=== PATIENT | male | born 1965 | race Caucasian/White ===

== ENCOUNTER 2023-03-14 10:19 | Outpatient (REF) | payer BC, SELFPAY ==
--- NOTE | ~2023-03-14 | XR_ITS ---
EXAMINATION: XR PELVIS CLINICAL INFORMATION: Pain left hip osteoarthritis with. Falls. COMPARISON: None available. TECHNIQUE: AP view of the pelvis. FINDINGS: Right hip: Unremarkable. Left hip: Mild joint space narrowing and possible small subchondral cysts indicative of at least mild osteoarthritis. Remaining bone and joints in the pelvis are normal. Incidental note made of spondylosis of the partially visualized lumbar sacral spine. XR/XR pelvis 1-2V IMPRESSION: RIGHT HIP: Normal. LEFT HIP: Mild osteoarthritis.
== END 2023-03-14 10:20 | disposition home or self-care (01) ==
LOC: HO.XRAY 10:19
PROVIDERS: Visit Provider Physical Medicine & Rehabilitation
DX: M25.552 Pain in left hip (principal); M15.0 Primary generalized (osteo)arthritis; R29.6 Repeated falls
CPT/HCPCS: 72170

== ENCOUNTER 2023-08-08 12:27 | Outpatient (AMB) | payer BC, SELFPAY ==
--- NOTE | 2023-08-08 12:30 | MHC.OFFVIS ---
Intake Intake Visit Reasons: New Pt - Left Hip Pain Intake Note: Aman is a 58 year old male who presents today as a new patient for evaluation of his left hip. He was referred to us by [facility] for a subchondral insufficiency fracture. States no injury he can recall just ongoing pain for the last 3 years and has worsen with time. Reports severe groin pain limited ROM and he is limping. States he had an injection Jun at [facility] whic did not help Allergies No Known Allergies Allergy (Verified 05/14/21 13:49) HPI New Pt - Left Hip Pain HPI Details Aman is a 58 year old man who presents with complaints of left hip OA pain. He complains of pain with WB activities. He says climbing in/out of his truck is especially painful, as well as when his hip is held in certain positions. His pain has been present for ~3 years now. He has been seen by [facility] and received a hip arthrogram injection on 06/17/23, with great relief. He says he was able to walk comfortably following this injection. However he slipped on ice and fell a few weeks later, causing an increase in his pain. He was referred here for hip OA, labral tear, and a subchondral insufficiency fracture of the left hip. He is very frustrated and exasperated. He has been in pain for years and everyday he feels like it is getting worse. [facility] Social History Patient Tobacco Use Status: Never used Tobacco Review of Systems Const All systems reviewed & are unremarkable except as noted in HPI and below Physical Exam Const General: no acute distress, alert and awake Orientation/consciousness: patient oriented x3 HEENT Head: Yes normocephalic and Yes atraumatic Eyes EOM: EOMs intact bilaterally Resp Effort & Inspection: normal respiratory effort and able to speak in complete sentences Cardio Jugular venous distension: no JVD Skin General skin exam: turgor normal Rashes: no rashes Neuro General: patient oriented x3 Extrem Other: + gait antalgia +Stinchfield +impinfgment Psych Appearance: grossly normal Affect: normal affect Attitude: cooperative Results Reviewed Results Reviewed: I personally reviewed relevant radiographs. Left hip moderate OA I personally reviewed the MR images. There is a subchondral insufficiency fracture of the left femoral head with associated head and neck edema. There is severe OA of the left hip. Assessment & Plan Assessment & Plan (1) Insufficiency fracture of left femur: Code(s): M84.452A - Pathological fracture, left femur, initial encounter for fracture Plan: This is as 58 yo with osteoarthritis of the left hip. 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 His hip injection was helpful but he currently is unable to function. He is taking NSAIDs and not sleeping. The pain localizes to his left groin. I recommend he now work and I recommend a hip replacement. I discussed this with him and I described the process and I discussed the risks benefits and alternatives including but not limited to the risk of pain, infection, stiffness, need for further surgery as well as potential medical complications such as blood clots, pulmonary embolism and cardiac complications. He expressed understanding and we will have our NN reach out to him to begin the clearance process. He does not have a PCP and will need some basic testing. I strongly advise him to not work. 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 (2) Osteoarthritis of left hip: Code(s): M16.12 - Unilateral primary osteoarthritis, left hip Plan Prepared for Manuelito Bee MD by Adolfo Young, medical doctor md, on 08/08/23 at 12:38 PM, EST. Coding Level of Care Code New Pt Level 4 (95586) Diagnoses Insufficiency fracture of left femur M84.452A Osteoarthritis of left hip M16.12
== END 2023-08-08 13:10 | disposition home or self-care (01) ==
PROVIDERS: Visit Provider Orthopaedic Surgery
DX: M16.12 Unilateral primary osteoarthritis, left hip (principal); M84.452A Pathological fracture, left femur, initial encounter for fracture
CPT/HCPCS: 99204

== ENCOUNTER → 2023-08-08 12:27 | Outpatient (BNVA) | payer BC, SELFPAY | PROVIDERS: Visit Provider Orthopaedic Surgery ==

== ENCOUNTER 2023-09-15 08:24 | Outpatient (AMB) | payer BC, SELFPAY ==
--- NOTE | 2023-09-15 08:33 | A.OFFPC_ITS ---
Vital Signs 09/15/23 08:38 Height 5 ft 9 in Weight 181 lb BMI 26.7 BP 116/74 Blood Pressure Location Lt brachial Position Sitting Respiration 13 Pulse 83 Pulse Source Pulse Oximeter Pulse Oximetry (%) 98 Oxygen Delivery Method Room Air Intake Visit Reasons: est care Intake Note: Patient is here to establish care with a PCP. Patient is due to have L hip surgery on October 08, 2023 with Manuelito Bee MD and was recommended to our office to establish care. Spectacle Truer Required: No Accompanied by: Self / Same As Patient Allergies No Known Allergies Allergy (Verified 09/15/23 08:54) Medication List - Last Reconciled 09/15/23 by Isidra Holden, [employer]- valacyclovir 1,000 mg PO Q8H 1 week Tobacco use date assessed: 09/15/23 Dental Screening Dental Screen Date: 09/15/23 Did you have a dental visit in the last 12 months?: No Did you have a dental problem in the last 6 months where you did not have access to dental care?: No Was dental information given to patient?: Patient has dentist HPI HPI Comments History of Present Illness Details 58-year-old male with Insufficiency frac ture of left femur, HIV, Osteoarthritis, Basal cell Skin cancer, MDD, INDIA Previous doctors: Dr Sonido Fuentes previous PCP [facility] ID Has been w/o meds, including HIV meds in years. Has no interest in referral to new ID. States meds caused a lot of issues. Here today for preoperative clearance. Surgery Type: L KEVIN Anesthesia Type: General Surgeon: Dr Manuelito Bee Date: 10/08/23 Any past surgical procedures: none Any complications from anesthesia or in post-op period: none ASA or NSAID Use: Ibuprofen but has been limited use over the last few weeks Current smoker: no Alcohol use: social only Drug use: none METs: > 4 climb flight of stairs, golf, walk, yardwork Medical history: Asthma Denies COPD Denies Obesity No BMI 26 Diabetes Denies Labs from today show: Labs from 09/17/2023 show low WBC 3.3 otherwise normal CBC, we will see MP, elevated LDL at 122, TSH, normal total lymphocytes, CD3 cells absolute CD3 count, % CD4 cells, absolute CD4 count, CD4/CD8 ratio, % CD8 cells and absolute CD8 count. HIV RNA quantitative elevated at 153, 2.18 Education Aspirin and NSAIDS should be discontinued one week before surgery to prevent excessive bleeding. If you are a smoker, there is increase risk of post surgical complications. Cessation is encouraged. Follow up with surgeon and all recommendations pre and post operatively. [facility] Medical History HIV (human immunodeficiency virus infection) Osteoarthritis of left hip Surgical History No pertinent past surgical history Family History Mother Cardiovascular disease Father Cardiovascular disease Social History Household Members: None Housing: House Alcohol intake: current Alcohol intake frequency: holidays/special occasions only Alcohol type: wine Patient Tobacco Use Status: Never used Tobacco e-Cigarette/Vaping Use: Never Used service: No Current occupational status: employed Current occupation: [employer] Current occupational exposures/hazards: No Cognitive needs: No Hearing needs: No Vision needs: Yes (wears glasses) Questionnaire PHQ-9 Over the last 2 weeks, how often have you been bothered by any of the following problems? 1. Little interest or pleasure in doing things: not at all 2. Feeling down, depressed, or hopeless: several days 3. Trouble falling or staying asleep, or sleeping too much: several days 4. Feeling tired or having little energy: several days 5. Poor appetite or overeating: not at all 6. Feeling bad about yourself - or that you are a failure or have let yourself or your family down: not at all 7. Trouble concentrating on things, such as reading the newspaper or watching television: not at all 8. Moving or speaking so slowly that other people could have noticed. Or the opposite - being so fidgety or restless that you have been moving around a lot more than usual: not at all 9. Thoughts that you would be better off or of hurting yourself in some way: not at all Total score: 3 Depression Screening Interpretation: Negative Depression Screening Done: Yes 03495 - PHQ-9 Billing: Yes Source: Developed by Drs. Kris Hamilton, Rita Koenig, Armen Waterman and colleagues, with an educational teddy from [employer]. Thrive Questionnaire Date Thrive assessed: 09/15/23 I am a: Patient What is your living situation today?: I have a steady place to live Within the past 12 months, did the food you bought not last and you didn't have the money to get more?: Never true Within the past 12 months, did you worry whether your food would run out before you got money to buy more?: Never true Do you have trouble paying for medicines?: No Do you have trouble getting transportation to medical appointments?: No Do you have trouble paying your heating and electricity bill?: No Do you have trouble taking care of your child, family member or friend?: No Do you have trouble with day-to-day activities such as bathing, preparing meals, shopping, managing finances, etc.?: No Are you currently unemployed and looking for a job?: No Are you interested in more education?: No Please select the resources that you would like help with: None Currently or been in a relationship where the following occur: no concerns reported THRIVE Score: 0 AUDIT C Alcohol Use Questionnaire (AUDIT-C) 1. How often do you have a drink containing alcohol?: Monthly or less 2. How many drinks containing alcohol do you have on a typical day when you are drinking?: 1 or 2 3. How often do you have six or more drinks on one occasion?: Never Total Score: 1 Score Reviewed/Action Taken: Yes INDIA-7 AMB Questionnaire INDIA-7 Date INDIA - 7 assessed: 09/15/23 Feeling nervous, anxious, or on edge: 1 = Several days Not being able to stop or control worryin = Several days Worrying too much about different things: 1 = Several days Trouble relaxin = Not at all Being so restless that it is hard to sit still: 0 = Not at all Becoming easily annoyed or irritable: 1 = Several days Feeling afraid as if something awful might happen: 0 = Not at all Total INDIA-7 score (0-4 normal; 5-9 mild; 10-14 moderate; 15-21 severe): 4 Source: Developed by Rita Grant, Armen Waterman and colleagues, with an educational teddy from [employer]. INDIA-7 Assessment Billing INDIA-7 Assessment Tool: INDIA-7 Assessment 20222 Review of Systems Const All systems reviewed & are unremarkable except as noted in HPI and below Physical exam (Primary Care) Vital Signs: Last Vital Signs Pulse 83 09/15/23 08:38 Resp 13 09/15/23 08:38 BP 116/74 09/15/23 08:38 Pulse Ox 98 09/15/23 08:38 Oxygen Delivery Method Room Air 09/15/23 08:38 BMI result Body Mass Index 26.7 Tobacco/Smoking Status: Tobacco use Status Tobacco use date assessed 09/15/23 09/15/23 08:51 Patient Tobacco Use Status Never used Tobacco 09/15/23 08:49 e-Cigarette/Vaping Use Never Used 09/15/23 08:51 PHQ-9: PHQ-9 Score PHQ-9: Total score 3 09/15/23 15:52 Depression Screening Interpretation: Negative Thrive Assessment: Date of Thrive Assessment Date Thrive assessed 09/15/23 09/15/23 08:51 Currently or been in a relationship where the following occur: no concerns reported Const Other: awake alert RRR LS CTAB No edema BLE Assessment and Plan Assessment & Plan (1) Pre-op exam: Comment: other than the HIV RNA (although less than 200) being elevated labs are WNL, including his CD4 count being > 200. He declines ART or referral to Infectious Disease MD. His HIV status places him at risk for post-op complications. I will update the Ortho team. Code(s): Z01.818 - Encounter for other preprocedural examination (2) INDIA (generalized anxiety disorder): Comment: not on meds; declines. Code(s): F41.1 - Generalized anxiety disorder (3) MDD (major depressive disorder), recurrent episode: Comment: not on meds, declines. Code(s): F33.9 - Major depressive disorder, recurrent, unspecified Qualifiers: Major depression episode severity: mild Qualified Code(s): F33.0 - Major depressive disorder, recurrent, mild (4) HIV (human immunodeficiency virus infection): Comment: HIV RNA (although less than 200) being elevated labs are WNL, including his CD4 count being > 200. declines ART and referral to ID. Code(s): B20 - Human immunodeficiency virus [HIV] disease Qualifiers: HIV symptom status: asymptomatic, with no history of HIV-related illness Qualified Code(s): Z21 - Asymptomatic human immunodeficiency virus [HIV] infection status (5) Insufficiency fracture of left femur: Comment: ff'd by [facility] [place] w/ plans for surgery Code(s): M84.452A - Pathological fracture, left femur, initial encounter for fracture Plan This note is constructed using voice recognition software. While every effort has been made to ensure accuracy in insurance healthcare consultant, still errors may have been included Sometimes, these errors may affect the content or meaning of the given sentence . Total time spent caring for the patient today was 60 minutes. This includes time spent before the visit reviewing the chart, time spent during the visit, and time spent after the visit on documentation Orders: Orders Comprehensive Met. Panel 09/15/23 B20 - Human immunodeficiency virus [HIV] disease, F33.9 - Major depressive disorder, recurrent, unspecified, F41.1 - Generalized anxiety disorder, M84.452A - Pathological fracture, left femur, initial encounter for fracture, Z01.818 - Encounter for other preprocedural examination TSH reflex Free T4 09/15/23 B20 - Human immunodeficiency virus [HIV] disease, F33.9 - Major depressive disorder, recurrent, unspecified, F41.1 - Generalized anxiety disorder, M84.452A - Pathological fracture, left femur, initial encounter for fracture, Z01.818 - Encounter for other preprocedural examination Lymphocyte Subset Panel 3 09/15/23 B20 - Human immunodeficiency virus [HIV] disease Complete Blood Count no Diff 09/15/23 B20 - Human immunodeficiency virus [HIV] disease, F33.9 - Major depressive disorder, recurrent, unspecified, F41.1 - Generalized anxiety disorder, M84.452A - Pathological fracture, left femur, initial encounter for fracture, Z01.818 - Encounter for other preprocedural examination PSA, Ultra Sensitive 09/15/23 B20 - Human immunodeficiency virus [HIV] disease, F33.9 - Major depressive disorder, recurrent, unspecified, F41.1 - Generalized anxiety disorder, M84.452A - Pathological fracture, left femur, initial encounter for fracture, Z01.818 - Encounter for other preprocedural examination HIV-1 RNA QN PCR Expanded 09/15/23 B20 - Human immunodeficiency virus [HIV] disease LDL Cholesterol Direct 09/15/23 B20 - Human immunodeficiency virus [HIV] disease Medications: Discontinued valacyclovir Discontinued Reason: Patient Completed Course 1,000 mg PO Q8H 1 week 21 tabs 0RF B02.8 - Zoster with other complications, L30.8 - Other specified dermatitis Coding Level of Care Code New Pt Level 5 (74336) Diagnoses Pre-op exam Z01.818 INDIA (generalized anxiety disorder) F41.1 Mild episode of recurrent major depressive disorder F33.0 Major depression episode severity: mild Asymptomatic HIV infection, with no history of HIV-related illness Z21 HIV symptom status: asymptomatic, with no history of HIV-related illness Insufficiency fracture of left femur M84.452A Additional Codes INDIA-7 Assessment Billing - INDIA-7 Assessment Tool: INDIA-7 Assessment 47004 ([id number])
[2023-09-15 08:38] VITALS: BP 116/74; PULSE 83; RESP 13; O2SAT 98; BMI 26.7
== END 2023-09-15 09:47 | disposition home or self-care (01) ==
PROVIDERS: Visit Provider Nurse Practitioner Family
DX: M84.452A Pathological fracture, left femur, initial encounter for fracture (principal); F33.0 Major depressive disorder, recurrent, mild; Z21 Asymptomatic human immunodeficiency virus [HIV] infection status; Z01.818 Encounter for other preprocedural examination; F41.1 Generalized anxiety disorder
CPT/HCPCS: 99205

== ENCOUNTER 2023-09-15 09:32 | Outpatient (REF) | payer BC, SELFPAY ==
[2023-09-15 11:15] LABS: Hematocrit 42.9 % (42.0-52.0); Hemoglobin 14.8 g/dl (14.0-18.0); Mean Corpuscular HGB Conc 34.5 g/dl (31.0-36.0); Mean Corpuscular Hemoglobin 32.1 pg (27.0-33.0); Mean Corpuscular Volume 93.1 fL (80.0-98.0); Mean Platelet Volume 8.8 fL (9.4-12.4); Platelet Count 317 X10*3/uL (160-400); Red Blood Count 4.61 X10*6/uL (4.60-5.80); White Blood Count 3.3 X10*3/uL (4.8-10.8)
[2023-09-15 11:53] LABS: Alanine Aminotransferase 21 U/L (0-40); Albumin Level 4.5 g/dL (3.5-5.0); Alkaline Phosphatase 57 U/L (39-117); Anion Gap 10 (12-20); Aspartate Amino Transferase 22 U/L (5-37); Bilirubin Total 0.5 mg/dL (0.0-1.0); Blood Urea Nitrogen 16 mg/dL (9-16); Calcium 9.9 mg/dL (8.4-10.2); Carbon Dioxide 28 mmol/L (22-29); Chloride 107 mmol/L (96-108); Estimated Glomerular Filt Rate > 60; Glucose Random 84 mg/dL (60-115); Potassium 3.9 mmol/L (3.3-5.1); Sodium 141 mmol/L (135-145); Total Protein 7.7 g/dL (6.5-8.0)
[2023-09-15 11:58] LABS: TSH reflex Free T4 1.46 uIU/mL (0.32-4.0)
[2023-09-16 13:47] LABS: LDL Cholesterol Direct 122 mg/dL (<100)
[2023-09-17 04:24] LABS: HIV RNA PCR Qn Copies 153 copies/mL (NOT DETECTED); HIV RNA PCR Qn Log Copies 2.18 (NOT DETECTED)
[2023-09-17 07:53] LABS: Absolute CD3 Count 853 cells/uL (840-3060); Absolute CD4 Count 512 cells/uL (490-1740); Absolute CD8 Count 347 cells/uL (180-1170); Absolute Lymphocytes 1143 cells/uL (850-3900); CD4 CD8 Ratio 1.47 (0.86-5.00); Percent CD3 Cells 75 % (57-85); Percent CD4 Cells 45 % (30-61); Percent CD8 Cells 30 % (12-42)
== END 2023-09-15 09:33 | disposition home or self-care (01) ==
LOC: HO.WFDLDS 09:32
PROVIDERS: Visit Provider Nurse Practitioner Family
DX: Z01.818 Encounter for other preprocedural examination (principal); Z12.5 Encounter for screening for malignant neoplasm of prostate; F33.9 Major depressive disorder, recurrent, unspecified; F41.1 Generalized anxiety disorder; M84.452A Pathological fracture, left femur, initial encounter for fracture; B20 Human immunodeficiency virus [HIV] disease
CPT/HCPCS: 36415; 80053; 83721; 84153; 84443; 85027; 86359; 86360; 87536

== ENCOUNTER 2023-09-15 11:03 | Outpatient (REF) | payer BC, SELFPAY | END 2023-09-15 11:04 | disposition home or self-care (01) | LOC: HO.LAB 11:03 | PROVIDERS: Visit Provider Nurse Practitioner Family | DX: Z13.89 Encounter for screening for other disorder (principal) ==

== ENCOUNTER → 2023-09-30 15:09 | Outpatient (BNV) | payer BC, SELFPAY | PROVIDERS: Admitting Provider Orthopaedic Surgery; Visit Provider Internal Medicine | DX: I49.3 Ventricular premature depolarization (principal); Z01.810 Encounter for preprocedural cardiovascular examination | CPT/HCPCS: 93010 ==

== ENCOUNTER 2023-10-02 10:35 | Outpatient (REF) | payer BC, SELFPAY | END 2023-10-02 10:36 | disposition home or self-care (01) | LOC: HO.HOSX 10:35 | PROVIDERS: Visit Provider Physician Assistant | DX: Z13.89 Encounter for screening for other disorder (principal) ==

== ENCOUNTER 2023-10-06 14:09 | Outpatient (AMB) | payer BC, SELFPAY ==
[2023-10-06 14:14] VITALS: PULSE 101; O2SAT 99; BMI 26.7
--- NOTE | 2023-10-06 14:14 | A.OFFVIS_ITS ---
Vital Signs 10/06/23 14:14 Height 5 ft 9 in Weight 181 lb BMI 26.7 Pulse 101 H Pulse Source Pulse Oximeter Pulse Oximetry (%) 99 Oxygen Delivery Method Room Air Intake Visit Reasons: Ref.HM,HIV Allergies No Known Allergies Allergy (Verified 10/06/23 14:16) HPI HPI Ref.[facility] [place], [place],HIV: Details: He was prior patient Dr Lefty Kent at [facility]. He had been seen initially in [place] by Dr Melo after diagnosis in 1995. He had been seen [facility] since 2009,first by Dr [place] and then Dr Kent. He had been on full dose Ritonivir and Combivir through 2002. He was briefly on atazanivir,ritonivir vased therapy in 2003 and then drug interruption. He was restarted on full-dose Fosamprenvir and Truvada in 2003. 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 He has also had carpal tunnel syndrome right arm. He has immunity to Hepatitis A and Hepatitis B core positivity. He has h/o KS He has h/o mood swings. He has CD4 count neri of 54. He started Genvoya in 2017 and has continued since with CD4 count 512 and viral load 153 just recently. He has ?h/o neurosyphilis but I dont see documentation. He also had zoster 01/03. He has had skin cancer he says. [facility] Medical History Takes dietary supplements Depression Skin cancer Anxiety HIV (human immunodeficiency virus infection) Osteoarthritis of left hip Surgical History No pertinent past surgical history Family History Mother Cardiovascular disease Father Cardiovascular disease Social History Household Members: None Housing: House Are you a primary livestock caretaker to a significant other at home: No Do you presently have visiting nurse or other home services: No Alcohol intake: current Alcohol intake frequency: does not drink Alcohol type: wine Patient Tobacco Use Status: Never used Tobacco e-Cigarette/Vaping Use: Never Used service: No Current occupational status: employed Current occupation: [employer] Current occupational exposures/hazards: No Cognitive needs: No Hearing needs: No Vision needs: Yes (wears glasses) Review of Systems Const unobtainable due to endotracheal tube Physical Exam Vital Signs: Last Vital Signs Pulse 101 H 10/06/23 14:14 Pulse Ox 99 10/06/23 14:14 Oxygen Delivery Method Room Air 10/06/23 14:14 BMI result Body Mass Index 26.7 Const General: cooperative Orientation/consciousness: patient oriented x3 HEENT Head: Yes normal to inspection Mouth: Normal oral and palatal mucosa present Eyes General: appearance normal, both eyes and all related structures Pupils: Equal, round and reactive pupils present Resp Effort & Inspection: normal respiratory effort Cardio Rate: regular rate Rhythm: regular rhythm GI Palpation (GI): Soft to palpation and nontender General: Yes no CVA tenderness Back/Spine/Pelvis Back: no CVA tenderness Skin General skin exam: no rashes or lesions noted Neuro General: patient oriented x3 Cranial nerves: Yes CN's II-XII intact bilaterally and Yes Equal, round and reactive pupils present Extrem General: Yes normal to inspection Psych Appearance: grossly normal Assessment & Plan Assessment & Plan (1) HIV (human immunodeficiency virus infection): Comment: He reports being here because he needs knee replacement and Orthopedics requests ID provider. I told him I would monitor his viral load and CD4 count and recheck viral load. He has not seen ID provider in a while because he doesnt like doctors. Recheck labs and see back and when stable every six months rectal Pap and WAYNE in future. Code(s): B20 - Human immunodeficiency virus [HIV] disease Category: Medical Qualifiers: HIV symptom status: asymptomatic, with no history of HIV-related illness Qualified Code(s): Z21 - Asymptomatic human immunodeficiency virus [HIV] infection status Plan per note Medications: New olcwyzv-ydo-exkig-tenof alafen [phone] mg (Genvoya) must administer with a meal/food 1 tab PO DAILY 30 tabs 3RF 30 days Coding Level of Care Code New Pt Level 4 (34008) Diagnoses Asymptomatic HIV infection, with no history of HIV-related illness Z21 HIV symptom status: asymptomatic, with no history of HIV-related illness
== END 2023-10-06 14:48 | disposition home or self-care (01) ==
LOC: HO.HID 14:09
PROVIDERS: Visit Provider Internal Medicine
DX: Z21 Asymptomatic human immunodeficiency virus [HIV] infection status (principal)
CPT/HCPCS: 99204

== ENCOUNTER → 2023-10-06 14:09 | Outpatient (BNVA) | payer BC, SELFPAY | PROVIDERS: Visit Provider Internal Medicine ==

== ENCOUNTER 2023-10-07 10:09 | Outpatient (AMB) | payer BC, SELFPAY ==
[2023-10-07 10:14] VITALS: BP 118/72; PULSE 78; O2SAT 98; BMI 26.4
--- NOTE | 2023-10-07 10:14 | MHC.OFFVIS ---
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 Patient himself does not have any clear-cut cardiac symptoms or cardiac history. Recent EKG had shown right bundle-branch block. Otherwise, he is quite surprised by the fact that EKG was abnormal and that he is referred here. [facility] Medical History (Updated 10/07/23 @ 10:33 by Finn Ahmadi MD) Takes dietary supplements Depression Skin cancer Anxiety HIV (human immunodeficiency virus infection) Osteoarthritis of left hip Surgical History No pertinent past surgical history Family History Mother Cardiovascular disease Father Cardiovascular disease Social History Household Members: None Housing: House Are you a primary career manager to a significant other at home: No Do you presently have visiting nurse or other home services: No 75 years or older and lives alone: No Alcohol intake: current Alcohol intake frequency: does not drink Alcohol type: wine Patient Tobacco Use Status: Never used Tobacco e-Cigarette/Vaping Use: Never Used service: No Current occupational status: employed Current occupation: [employer] Current occupational exposures/hazards: No Cognitive needs: No Hearing needs: No Vision needs: Yes (wears glasses) Review of Systems Const Denies weakness ENT Denies dizziness Card Denies chest pain, Denies chest pain with activity, Denies syncope, Denies rapid heart rate, Denies pedal edema, Denies edema, Denies leg edema, Denies lightheadedness, Denies palpitations, Denies dyspnea, Denies dyspnea on exertion and Denies orthopnea Resp Denies cough, Denies dyspnea and Denies dyspnea on exertion GI Denies hematochezia and Denies change in stool character Musc Denies abnormal gait, Denies muscle cramps, Denies muscle weakness, Denies numbness, Denies radiating pain into limb and Denies tingling Neuro Denies abnormal gait, Denies dizziness, Denies syncope, Denies numbness, Denies tingling and Denies weakness Endo Denies palpitations Physical Exam Vital Signs: Last Vital Signs Pulse 78 10/07/23 10:14 BP 118/72 10/07/23 10:14 Pulse Ox 98 10/07/23 10:14 Oxygen Delivery Method Room Air 10/07/23 10:14 BMI result Body Mass Index 26.4 Const General: comfortable and no acute distress Orientation/consciousness: patient oriented x3 HEENT Other: Unremarkable Head: Yes normal to inspection Neck Neck: Yes normal visual inspection Chest Chest palpation & inspection: normal inspection of the chest Resp Auscultation: clear to auscultation bilaterally Cardio Palpation: normal PMI Heart sounds: S1 normal heart sound present, S2 normal heart sound present, no gallops, no murmurs and no rubs GI Palpation (GI): Soft to palpation Back/Spine/Pelvis Other: unremarkable Skin General skin exam: no rashes or lesions noted Neuro General: patient oriented x3 Extrem General: Yes normal to inspection Psych Mental Status: mental status grossly normal Assessment & Plan Assessment & Plan (1) Preoperative cardiovascular examination: Code(s): Z01.810 - Encounter for preprocedural cardiovascular examination Category: Medical (2) RBBB: Code(s): I45.10 - Unspecified right bundle-branch block Category: Medical Plan In the recent EKG, underlying rhythm is sinus at 74/Min; right bundle-branch block pattern. PVC. Normal ID and corrected QT. Findings discussed with patient. He is quite surprised by the fact he has had an abnormal EKG. Tried to reassure him as much but he seems quite anxious. Will get an echocardiogram and coronary CT for further evaluation. With his hip pain, he does not seem to be really able to walk to do an exercise stress test or provoke symptoms. Orders: Orders CA echo transthoracic complete Today I45.10 - Unspecified right bundle-branch block CT Cardiac Coronary Angio Today I25.10 - Atherosclerotic heart disease of [place] coronary artery without angina pectoris Coding Level of Care Code New Pt Level 4 (49572) Diagnoses Preoperative cardiovascular examination Z01.810 RBBB I45.10
== END 2023-10-07 10:52 | disposition home or self-care (01) ==
PROVIDERS: Visit Provider Internal Medicine
DX: Z01.810 Encounter for preprocedural cardiovascular examination (principal); I45.10 Unspecified right bundle-branch block
CPT/HCPCS: 99214

== ENCOUNTER → 2023-10-07 10:09 | Outpatient (BNVA) | payer BC, SELFPAY | PROVIDERS: Visit Provider Internal Medicine ==

== ENCOUNTER → 2023-10-15 09:00 | Outpatient (REF) | payer BC, SELFPAY ==
--- NOTE | 2023-10-15 09:03 | CA_ITS ---
Transthoracic Echocardiogram Patient (Last, First, Middle): Aman Cowan, Gender: Male Date of : 1965 Age: 58 Procedure Date: 10/15/2023 Procedure Type: Transthoracic Echocardiogram Location: OP Height: 172.72 cm Weight: 81.65 kg BSA: 1.95 m2 Heart Rate: bpm BP: 124 / 80 mmHg Kinesiology Professor: Referring MD: Finn Ahmadi MD Symptoms: I45.10 - Unspecified right bundle-branch block Study Quality: Good ECG Rhythm: Sinus Conclusions: - The left ventricular systolic function is normal. The calculated ejection fraction is 59% by biplane method. - No obvious valvular pathology seen on this study. Findings Left Ventricle Normal left ventricular cavity size. There is normal left ventricular wall thickness. The left ventricular systolic function is normal. The calculated ejection fraction is 59% by biplane method. There is no evidence of regional wall motion abnormalities. Diastolic function is normal for age. Right Ventricle Normal right ventricular cavity size and systolic function. Atria Both atria are normal in size. Aortic Valve There is a normal trileaflet aortic valve. There is no aortic valve stenosis. There is trace (trivial) aortic valve regurgitation. Mitral Valve The mitral valve appears normal. There is no mitral valve regurgitation. There is no mitral valve stenosis. Pulmonic Valve The pulmonic valve is likely normal. Tricuspid Valve Normal tricuspid valve structure. There is trace tricuspid valve regurgitation. There is no evidence of pulmonary hypertension. Great Vessels The asc aorta is normal in size. Venous The inferior vena cava is normal in size and collapses greater than 50% with inspiration. Pericardium/Pleural There is no evidence of pericardial effusion. Prior Study Comparison No prior study available for comparison. Recommendations, Care & Conclusions No obvious valvular pathology seen on this study. Measurements 2D Linear Measurements IVSd: 1.06 0.6-0.9/0.6-1.0 cm LVIDd: 4.35 3.9-5.3/4.2-5.9 cm LVIDd Index: 2.23 2.4-3.2/2.2-3.1 cm/m2 LVIDs: 2.56 2.0-3.6 cm LVPWd: 1.08 0.7-1.1 cm Ao Root: 2.60 2.1-3.5 cm LA Diam: 3.20 2.7-3.8/3.0-4.0 cm LAIDs Index: 1.64 1.5-2.3 cm/m2 LV Mass: 198.69 67-162/88-224 g LV Mass Index: 101.89 43-95/49-115 g/m2 LVOT Diam: 2.00 3.0+(-)1.3 cm 2D Systolic Function EF 4C: 58.30 >55% EF 2C: 61.70 >55% EF BiP: 59.00 >55% Mitral Valve MV Pk E: 0.63 MV PK A: 0.75 MV Decel Time: 154.00 E/A: 0.80 E'Lateral: 10.10 E'Medial: 7.51 E/E' Med: 8.30 E/E' Lat: 6.20 PHT: 45.00 MVA PHT: 4.89 Decel [place]: 4.07 Aortic Valve AoV Pk Jluis: 1.43 AoV Mn Jluis: 0.95 AoV VTI: 0.28 AoV Pk Grad: 8.00 Aov Mn Grad: 4.00 TRAN Cont.VTI: 2.36 LVOT LVOT Pk Jluis: 1.07 LVOT Mn Jluis: 0.68 LVOT VTI: 0.21 LVOT Pk Grad: 5.00 LVOT Mn Grad: 2.00 LVOT Diam: 2.00 LVOT Area: 3.14 Diastolic Function MV Pk E: 0.63 MV Pk A: 0.75 E/A: 0.80 E'Medial: 7.51 E/E' Med: 8.30 E' Laterial: 10.10 E/E' Lat: 6.20 Right Ventricle TAPSE (mm): 29.00 TVS' Jluis: 16.00 Tricuspid Valve TR Pk Jluis: 2.13 TR Pk Grad: 18.00 RA Press: 3.00 RVSP: 22.00 Great Vessels Aorta Ao Root-2D: 2.60 2.0-3.7 cm Ao Asc: 2.80 2.1-3.4 cm Pulmonary Valve PV Pk Jluis: 0.96 Peak PV Grad: 4.00 Updated in Other Vendor System with Status of Final Finn Ahmadi MD electronically signed on 10/17/2023 3:50:43 PM with status of Final
== END ==
LOC: HO.CARD 09:00
PROVIDERS: Visit Provider Internal Medicine
DX: I45.10 Unspecified right bundle-branch block (principal)
CPT/HCPCS: 93306

== ENCOUNTER → 2023-10-15 09:03 | Outpatient (BNV) | payer BC, SELFPAY | PROVIDERS: Visit Provider Internal Medicine | DX: I35.1 Nonrheumatic aortic (valve) insufficiency (principal) | CPT/HCPCS: 93306 ==

== ENCOUNTER 2023-11-03 14:11 | Outpatient (AMB) | payer BC, SELFPAY ==
--- NOTE | 2023-11-03 14:12 | MHC.OFFVIS ---
Vital Signs 11/03/23 14:14 Height 5 ft 9 in Weight 182 lb BMI 26.9 Pulse 110 H Pulse Source Pulse Oximeter Pulse Oximetry (%) 98 Oxygen Delivery Method Room Air Intake Visit Reasons: f/u,1 mth.HIV Allergies No Known Allergies Allergy (Verified 11/03/23 14:15) HPI HPI f/u,1 mth.HIV: Details: He has been doing well. He has CD4 count 512 and viral load undetectable on 11/02. He is back on Genvoya. He is doing well. [facility] Medical History Takes dietary supplements Depression Skin cancer Anxiety HIV (human immunodeficiency virus infection) Osteoarthritis of left hip Surgical History No pertinent past surgical history Family History Mother Cardiovascular disease Father Cardiovascular disease Social History Household Members: None Housing: House Are you a primary pediatric critical care nurse to a significant other at home: No Do you presently have visiting nurse or other home services: No 75 years or older and lives alone: No Alcohol intake: current Alcohol intake frequency: does not drink Alcohol type: wine Patient Tobacco Use Status: Never used Tobacco e-Cigarette/Vaping Use: Never Used service: No Current occupational status: employed Current occupation: [employer] Current occupational exposures/hazards: No Cognitive needs: No Hearing needs: No Vision needs: Yes (wears glasses) Review of Systems Const All systems reviewed & are unremarkable except as noted in HPI and below Physical Exam Vital Signs: Last Vital Signs Pulse 110 H 11/03/23 14:14 Pulse Ox 98 11/03/23 14:14 Oxygen Delivery Method Room Air 11/03/23 14:14 BMI result Body Mass Index 26.9 Const General: cooperative Orientation/consciousness: patient oriented x3 HEENT Head: Yes normal to inspection Mouth: Normal oral and palatal mucosa present Eyes General: appearance normal, both eyes and all related structures Pupils: Equal, round and reactive pupils present Resp Effort & Inspection: normal respiratory effort Cardio Rate: regular rate Rhythm: regular rhythm GI Palpation (GI): Soft to palpation and nontender General: Yes no CVA tenderness Back/Spine/Pelvis Back: no CVA tenderness Skin General skin exam: no rashes or lesions noted Neuro General: patient oriented x3 Cranial nerves: Yes CN's II-XII intact bilaterally and Yes Equal, round and reactive pupils present Extrem General: Yes normal to inspection Psych Appearance: grossly normal Assessment & Plan Assessment & Plan (1) HIV (human immunodeficiency virus infection): Comment: He is doing well. HIV untransmissible since undetectable (u=u) so can go back to Orthopedic Surgery for surgery. Code(s): B20 - Human immunodeficiency virus [HIV] disease Category: Medical Qualifiers: HIV symptom status: asymptomatic, with no history of HIV-related illness Qualified Code(s): Z21 - Asymptomatic human immunodeficiency virus [HIV] infection status Plan: Back to Surgery I did text Dr Bee Continue Genvoya. See us in six months. Orders: Orders HIV-1 RNA QN PCR Expanded 11/03/23 Z21 - Asymptomatic human immunodeficiency virus [HIV] infection status Medications: New xwruxet-rvs-aknjt-tenof alafen [id number] mg (Genvoya) must administer with a meal/food 1 tab PO DAILY 30 days 30 tabs 0RF Coding Level of Care Code Est Pt Level 4 (24611) Diagnoses Asymptomatic HIV infection, with no history of HIV-related illness Z21 HIV symptom status: asymptomatic, with no history of HIV-related illness
[2023-11-03 14:14] VITALS: PULSE 110; O2SAT 98; BMI 26.9
== END 2023-11-03 14:42 | disposition home or self-care (01) ==
LOC: HO.HID 14:11
PROVIDERS: Visit Provider Internal Medicine
DX: Z21 Asymptomatic human immunodeficiency virus [HIV] infection status (principal)
CPT/HCPCS: 99214

== ENCOUNTER 2023-11-03 14:11 | Outpatient (REF) | payer BC, SELFPAY ==
[2023-11-05 10:44] LABS: HIV RNA PCR Qn Copies NOT DETECTED copies/mL (NOT DETECTED); HIV RNA PCR Qn Log Copies NOT DETECTED (NOT DETECTED)
== END 2023-11-03 14:12 | disposition home or self-care (01) ==
LOC: HO.LAB 14:11
PROVIDERS: Visit Provider Internal Medicine
DX: Z21 Asymptomatic human immunodeficiency virus [HIV] infection status (principal)
CPT/HCPCS: 36415; 87536

== ENCOUNTER 2023-11-19 09:51 | Outpatient (AMB) | payer BC, SELFPAY ==
[2023-11-19 09:56] VITALS: BP 118/74; PULSE 88; RESP 14; TEMP 36.6; O2SAT 99; BMI 26.6
--- NOTE | 2023-11-19 09:56 | MHC.PC.OV ---
Vital Signs 11/19/23 09:56 Height 5 ft 9 in Weight 180 lb BMI 26.6 BP 118/74 Blood Pressure Location Rt brachial Position Sitting Respiration 14 Pulse 88 Pulse Source Pulse Oximeter Temp 98 F Temp Source Temporal Artery Scan Pulse Oximetry (%) 99 Oxygen Delivery Method Room Air Intake Visit Reasons: PCP Clearance for Upcoming Surgery Dip Filler Required: No Accompanied by: Self / Same As Patient Allergies No Known Allergies Allergy (Verified 11/19/23 10:36) Tobacco use date assessed: 09/15/23 Dental Screening Dental Screen Date: 09/15/23 HPI HPI Comments History of Present Illness Details 58-year-old male with Insufficiency fracture of left femur, HIV, Osteoarthritis, Skin cancer, MDD, [place] Here today for preoperative clearance. Surgery Type: L KEVIN Anesthesia Type: General Surgeon: Dr Manuelito Bee Date: 12/23/23 Any past surgical procedures: none Any complications from anesthesia or in post-op period: none ASA or NSAID Use: Ibuprofen but has been limited use over the last few weeks Current smoker: no Alcohol use: social only Drug use: none METs: > 4 climb flight of stairs, golf, walk, yardwork Medical history: Asthma Denies COPD Denies Obesity No BMI 26 Diabetes Denies Cards notes 10/07/23: EKG, underlying rhythm is sinus at 74/Min; right bundle-branch block pattern. PVC. Normal NV and corrected QT In the echocardiogram, LVEF is 59%. No wall motion abnormalities. Otherwise unremarkable. In the coronary CTA, no significant CAD. Minimal calcification. May proceed with planned surgery. Low cardiac risk ID consult 10/05 and 11/03/23: He has CD4 count 512 and viral load undetectable on 11/02. He is back on Genvoya. HIV untransmissible since undetectable (u=u) so can go back to Orthopedic Surgery for surgery. Education Aspirin and NSAIDS should be discontinued one week before surgery to prevent excessive bleeding. If you are a smoker, there is increase risk of post surgical complications. Cessation is encouraged. Follow up with surgeon and all recommendations pre and post operatively. *Unfortunately, MR. Cowan was very rude during todays visit. ASking about billing and coding, blaming me for delay in his surgery this was you that is responsible for my cancellation. You started all of this in September I spent some time explaining surgical clearance however this only upset him more. Given the patient to provider experience today and unable to remedy during conversation, I will have the office service coordinator discharge him. He can f/u with another provider or practice. I wished him luck w/ his surgery and recovery and also asked him speak to his insurance and billing if he had any issues. He left office w/o saying anything else. [facility] Medical History Takes dietary supplements Depression Skin cancer Anxiety HIV (human immunodeficiency virus infection) Osteoarthritis of left hip Surgical History No pertinent past surgical history Family History Mother Cardiovascular disease Father Cardiovascular disease Social History Household Members: None Housing: House Are you a primary physician primary care sports medicine to a significant other at home: No Do you presently have visiting nurse or other home services: No 75 years or older and lives alone: No Alcohol intake: current Alcohol intake frequency: does not drink Alcohol type: wine Patient Tobacco Use Status: Never used Tobacco e-Cigarette/Vaping Use: Never Used service: No Current occupational status: employed Current occupation: [employer] Current occupational exposures/hazards: No Cognitive needs: No Hearing needs: No Vision needs: Yes (wears glasses) Questionnaire Thrive Questionnaire Date Thrive assessed: 09/15/23 INDIA-7 AMB Questionnaire INDIA-7 Date INDIA - 7 assessed: 09/15/23 Source: Developed by Drs. Kris Hamilton, Rita Koenig, Armen Waterman and colleagues, with an educational teddy from [employer]. Review of Systems Const All systems reviewed & are unremarkable except as noted in HPI and below Physical exam (Primary Care) Vital Signs: Last Vital Signs Temp 98 F 11/19/23 09:56 Pulse 88 11/19/23 09:56 Resp 14 11/19/23 09:56 BP 118/74 11/19/23 09:56 Pulse Ox 99 11/19/23 09:56 Oxygen Delivery Method Room Air 11/19/23 09:56 BMI result Body Mass Index 26.6 Tobacco/Smoking Status: Tobacco use Status Tobacco use date assessed 09/15/23 11/19/23 10:06 Patient Tobacco Use Status Never used Tobacco 11/19/23 10:06 e-Cigarette/Vaping Use Never Used 11/19/23 10:06 Thrive Assessment: Date of Thrive Assessment Date Thrive assessed 09/15/23 11/19/23 10:06 Assessment and Plan Assessment & Plan (1) Pre-op exam: Comment: Medically cleared for surgery. Code(s): Z01.818 - Encounter for other preprocedural examination Plan: This note is constructed using voice recognition software. While every effort has been made to ensure accuracy in director educational radio, still errors may have been included Sometimes, these errors may affect the content or meaning of the given sentence . Total time spent caring for the patient today was 45 minutes. This includes time spent before the visit reviewing the chart, time spent during the visit, and time spent after the visit on documentation Coding Level of Care Code Est Pt Level 5 (31954) Diagnoses Pre-op exam Z01.818
== END 2023-11-19 10:41 | disposition home or self-care (01) ==
PROVIDERS: PCP Family Medicine; Visit Provider Nurse Practitioner Family
DX: M16.12 Unilateral primary osteoarthritis, left hip (principal); Z01.818 Encounter for other preprocedural examination
CPT/HCPCS: 99215

== ENCOUNTER → 2023-11-21 11:00 | Outpatient (BNVA) | payer BC, SELFPAY | DX: Z01.818 Encounter for other preprocedural examination (principal) ==

== ENCOUNTER 2023-12-19 08:37 | Outpatient (AMB) | payer BC, SELFPAY ==
--- NOTE | 2023-12-19 08:48 | MHC.OFFVIS ---
Vital Signs 12/19/23 08:51 Height 5 ft 9 in Weight 180 lb BMI 26.6 Intake Visit Reasons: Pre-Op: L KEVIN w/NE 12/23/23 Intake Note: Aman is a 58 year old male who presents today pre operatively for left KEVIN w/NE 12/23/23. Allergies No Known Allergies Allergy (Verified 12/19/23 08:51) Medication List - Last Reconciled 12/19/23 by KATY Black-cob-emtri-tenof alafen [phone] mg (Genvoya) 1 tab PO DAILY 30 days walker Folding front wheeled walker HPI Comments Details: Mr Tierney presents to the office today for preop visit. He is scheduled for left total hip arthroplasty with Dr. Bee. He continues to have ongoing pain and difficulty with ambulation in the left hip, which is affecting his quality of life; therefore, he has elected to move forward with surgery. He does have a PMH of HIV [facility] Medical History Takes dietary supplements Depression Skin cancer Anxiety HIV (human immunodeficiency virus infection) Osteoarthritis of left hip Surgical History No pertinent past surgical history Family History Mother Cardiovascular disease Father Cardiovascular disease Social History Household Members: None Housing: House Are you a primary continuum of care manager to a significant other at home: No Do you presently have visiting nurse or other home services: No 75 years or older and lives alone: No Alcohol intake: current Alcohol intake frequency: does not drink Alcohol type: wine Patient Tobacco Use Status: Never used Tobacco e-Cigarette/Vaping Use: Never Used service: No Current occupational status: employed Current occupation: [employer] Current occupational exposures/hazards: No Cognitive needs: No Hearing needs: No Vision needs: Yes (wears glasses) Review of Systems Const All systems reviewed & are unremarkable except as noted in HPI and below Physical Exam Vital Signs: BMI result Body Mass Index 26.6 Const General: cooperative and no acute distress Orientation/consciousness: patient oriented x3 HEENT Head: Yes normal to inspection, Yes normocephalic and Yes atraumatic Eyes General: appearance normal, both eyes and all related structures EOM: EOMs intact bilaterally Neck Neck: Yes normal visual inspection and Yes no lymphadenopathy Resp Effort & Inspection: normal respiratory effort and able to speak in complete sentences Cardio Jugular venous distension: no JVD Rate: regular rate Peripheral pulses: Peripheral pulses 2+ throughout GI Inspection: Yes normal to inspection Palpation (GI): Soft to palpation Skin General skin exam: no rashes or lesions noted Rashes: no rashes Neuro General: patient oriented x3 Extrem Other: + gait antalgia +Stinchfield +impinfgment Psych Appearance: grossly normal Mental Status: mental status grossly normal Affect: normal affect Attitude: cooperative Assessment & Plan Assessment & Plan (1) History of total left hip replacement: Code(s): Z96.642 - Presence of left artificial hip joint Category: Surgical Plan: I discussed in detail the procedure and what to expect pre and post operatively. We discussed the risks, benefits and alternatives to the surgery as well as the rehabilitation course. The risks; which include, but are not limited to infection, bleeding, nerve injury, ongoing pain, swelling, and stiffness, perioperative risk of injury to bones and soft tissues, and blood clots. I?ve answered all questions and with their understanding they have consented to move forward with Left total hip arthroplasty with Dr. Bee He will attend [facility] CORE Orders: Orders PT Evaluation and Treatment Today Z96.642 - Presence of left artificial hip joint Patient Instructions: Scribed for Jessica Golden PA-C, by Elio Castorena medical science liaison, on 12/19/2023 at 8:45 AM EST.? I, Jessica Golden PA-C, have personally reviewed and agree with the information entered by the scribe. Coding Level of Care Code Est Pt Level 3 (37684) Diagnoses History of total left hip replacement Z96.642
[2023-12-19 08:51] VITALS: BMI 26.6
== END 2023-12-19 09:38 | disposition home or self-care (01) ==
PROVIDERS: Visit Provider Physician Assistant
DX: Z96.642 Presence of left artificial hip joint (principal)
CPT/HCPCS: 99024

== ENCOUNTER → 2023-12-19 08:37 | Outpatient (BNVA) | payer BC, SELFPAY | PROVIDERS: Visit Provider Physician Assistant ==

== ENCOUNTER 2023-12-23 06:21 | Inpatient (IN) | payer BC, SELFPAY ==
[2023-09-30 14:21] VITALS: BP 120/73; PULSE 85; RESP 20; O2SAT 98; BMI 26.3
--- NOTE | 2023-09-30 15:09 | ECG_ITS ---
Test Reason : preop Blood Pressure : / mmHG Vent. Rate : 074 BPM Atrial Rate : 074 BPM P-R Int : 158 ms QRS Dur : 144 ms QT Int : 410 ms P-R-T Axes : 065 006 036 degrees QTc Int : 455 ms Sinus rhythm with occasional Premature ventricular complexes Right bundle branch block Abnormal ECG No previous ECGs available Referred By: Isabela Concepcion Electronically Signed By:OREN SMITH
[2023-09-30 16:45] LABS: MRSA Nasal PCR NEGATIVE (Negative); SA Nasal PCR NEGATIVE (Negative)
--- NOTE | 2023-10-01 08:15 | P.CONAN_ITS ---
Documented by User: Isabela Concepcion MD 12/24/23 08:39 HPI - Anesthesia Eval Consult details Narrative: 58 yo male patient seen in pretesting for pre-op assessment prior to Left hip surgery. Patient very tearful PMFSH Active Problems Active Problems: All Active Problems Pre-op exam (Acute) Skin cancer (Acute) INDIA (generalized anxiety disorder) (Acute) MDD (major depressive disorder), recurrent episode (Acute) Insufficiency fracture of left femur (Acute) Osteoarthritis of left hip (Acute) HIV (human immunodeficiency virus infection) (Acute) Past Medical History Medical History Takes dietary supplements Depression Skin cancer Anxiety HIV (human immunodeficiency virus infection) Osteoarthritis of left hip Family History Family History Mother Cardiovascular disease Father Cardiovascular disease Surgical History Surgical History No pertinent past surgical history Social History Social History Household Members: Significant Other Household Members Other:: Ambrosio Housing: House Are you a primary wound care physician to a significant other at home: No Do you presently have visiting nurse or other home services: No Alcohol intake: current Alcohol intake frequency: does not drink Alcohol type: wine Patient Tobacco Use Status: Never used Tobacco e-Cigarette/Vaping Use: Never Used Use of substances other than those prescribed or required for medical reasons: No Substance Use Type Other:: occasional use of CBD oil Currently Displaying Signs/Symptoms of Drug Intoxication Withdrawal: No Have you been hit, kicked, punched, or otherwise hurt by someone within the past year? If so, by whom?: No Do you feel safe in your current relationship?: Yes Is there a partner from a previous relationship who is making you feel unsafe now?: No Are you made to feel afraid or neglected: No Are you DNR?: No Advance Directives: No Advance Directives on File: No Do you have a plan to hurt others: No Plan Recently lost weight without trying: No Eating poorly because of decreased appetite: No Nutrition Risks: No Nutritional Risk Poor oral hygiene: No service: No Current occupational status: employed Current occupation: [employer] Current occupational exposures/hazards: No Cognitive needs: No Hearing needs: No Vision needs: Yes (wears glasses) Meds Allergies Allergy/AdvReac Type Severity Reaction Status Date / Time No Known Allergies Allergy Verified 12/23/23 06:14 Exam Height,Weight and Vital Signs: Height 5 ft 9 in Weight 80.739 kg Last Vital Signs Pulse 85 09/30/23 14:21 Resp 20 09/30/23 14:21 BP 120/73 09/30/23 14:21 Pulse Ox 98 09/30/23 14:21 O2 Del Method Room Air 09/30/23 14:21 Pertinent Lab Results Pertinent Lab Results: Laboratory Tests 09/30/23 09/30/23 14:40 15:24 Nasal Screen MRSA (PCR) NEGATIVE Nasal S. aureus Screen NEGATIVE Nasal MRSA/S.aureus Interp SEE NOTE Blood Type O Positive Antibody Screen NEGATIVE Documented by User: Tatianna Bledsoe NP 12/22/23 09:47 PMFSH Past Medical History Medical History Takes dietary supplements Depression Skin cancer Anxiety HIV (human immunodeficiency virus infection) Osteoarthritis of left hip Family History Family History Mother Cardiovascular disease Father Cardiovascular disease Surgical History Surgical History No pertinent past surgical history Social History Social History Household Members: Significant Other Household Members Other:: Ambrosio Housing: House Are you a primary wound care physician to a significant other at home: No Do you presently have visiting nurse or other home services: No Alcohol intake: current Alcohol intake frequency: does not drink Alcohol type: wine Patient Tobacco Use Status: Never used Tobacco e-Cigarette/Vaping Use: Never Used Use of substances other than those prescribed or required for medical reasons: No Substance Use Type Other:: occasional use of CBD oil Currently Displaying Signs/Symptoms of Drug Intoxication Withdrawal: No Have you been hit, kicked, punched, or otherwise hurt by someone within the past year? If so, by whom?: No Do you feel safe in your current relationship?: Yes Is there a partner from a previous relationship who is making you feel unsafe now?: No Are you made to feel afraid or neglected: No Are you DNR?: No Advance Directives: No Advance Directives on File: No Do you have a plan to hurt others: No Plan Recently lost weight without trying: No Eating poorly because of decreased appetite: No Nutrition Risks: No Nutritional Risk Poor oral hygiene: No service: No Current occupational status: employed Current occupation: [employer] Current occupational exposures/hazards: No Cognitive needs: No Hearing needs: No Vision needs: Yes (wears glasses) Meds Allergies Allergy/AdvReac Type Severity Reaction Status Date / Time No Known Allergies Allergy Verified 12/23/23 06:14 Exam Narrative Narrative: EKG 09/2023 Vent. Rate : 074 BPM Atrial Rate : 074 BPM P-R Int : 158 ms QRS Dur : 144 ms QT Int : 410 ms P-R-T Axes : 065 006 036 degrees QTc Int : 455 ms Sinus rhythm with occasional Premature ventricular complexes Right bundle branch block Abnormal ECG No previous ECGs available ECHO 10/2023 Conclusions: - The left ventricular systolic function is normal. The calculated ejection fraction is 59% by biplane method. - No obvious valvular pathology seen on this study.
[2023-12-12 08:31] VITALS: BMI 26.6
[2023-12-12 12:08] LABS: MRSA Nasal PCR NEGATIVE (Negative); SA Nasal PCR NEGATIVE (Negative)
--- NOTE | 2023-12-22 17:16 | HO.ANESPROP2 ---
HPI - Anesthesia Eval Consult details Narrative: 58 yo old male patient initially seen in Pre-testing clinic in preparation for Left KEVIN. Patient was quite tearful at that visit. H/o HIV for which he had been off treatment. Was seen by Infectious disease residential sales consultant, Dr Zavala and therapy re-instituted. CD4 count 512. Viral count now undetectable. In summary, patient with Insufficiency fracture of left femur and Osteoarthritis of left hip. For Left KEVIN PMFSH Active Problems Active Problems: All Active Problems Preoperative cardiovascular examination (Acute) RBBB (Acute) Pre-op exam (Acute) Skin cancer (Acute) [place] (generalized anxiety disorder) (Acute) MDD (major depressive disorder), recurrent episode (Acute) Insufficiency fracture of left femur (Acute) Osteoarthritis of left hip (Acute) HIV (human immunodeficiency virus infection) (Acute) Tearful this morning Past Medical History Medical History Takes dietary supplements Depression Skin cancer Anxiety HIV (human immunodeficiency virus infection) Osteoarthritis of left hip Family History Family History Mother Cardiovascular disease Father Cardiovascular disease Family history of problems with anesthesia: No Surgical History Surgical History No pertinent past surgical history History of Problems with Anesthesia: No Social History Social History Household Members: None Housing: House Are you a primary rn intensive care unit to a significant other at home: No Do you presently have visiting nurse or other home services: No Alcohol intake: current Alcohol intake frequency: does not drink Alcohol type: wine Patient Tobacco Use Status: Never used Tobacco e-Cigarette/Vaping Use: Never Used Use of substances other than those prescribed or required for medical reasons: No Substance Use Type Other:: occasional use of CBD oil Have you been hit, kicked, punched, or otherwise hurt by someone within the past year? If so, by whom?: No Are you DNR?: No Advance Directives: No Advance Directives on File: No Recently lost weight without trying: No Eating poorly because of decreased appetite: No Nutrition Risks: No Nutritional Risk Poor oral hygiene: No service: No Current occupational status: employed Current occupation: [employer] Current occupational exposures/hazards: No Cognitive needs: No Hearing needs: No Vision needs: Yes (wears glasses) Meds Allergies Allergy/AdvReac Type Severity Reaction Status Date / Time No Known Allergies Allergy Verified 12/23/23 06:14 Exam Height,Weight and Vital Signs: Height 5 ft 9 in Weight 81.647 kg Last Vital Signs Pulse 85 09/30/23 14:21 Resp 20 09/30/23 14:21 BP 120/73 09/30/23 14:21 Pulse Ox 98 09/30/23 14:21 O2 Del Method Room Air 09/30/23 14:21 Vital Signs Temp Pulse Resp BP Pulse Ox O2 Del Method 12/23/23 06:59 98.1 F 78 16 144/86 H 100 Room Air Pertinent Lab Results Pertinent Lab Results: Laboratory Tests 09/30/23 09/30/23 12/12/23 14:40 15:24 10:31 Nasal Screen MRSA (PCR) NEGATIVE NEGATIVE Nasal S. aureus Screen NEGATIVE NEGATIVE Nasal MRSA/S.aureus Interp SEE NOTE SEE NOTE Blood Type O Positive Antibody Screen NEGATIVE 12/12/23 11:02 Nasal Screen MRSA (PCR) Nasal S. aureus Screen Nasal MRSA/S.aureus Interp Blood Type O Positive Antibody Screen NEGATIVE Airway Mallampati Class: II TM Dist: >3cm Neck ROM: Full Loose/Missing/Broken Teeth: No (Denies broken,loose, missing teeth) Heart: RRR Lungs: CTAB Assessment and Plan Assessment Anesthesia Assessment: Anesthesia Plan Discussed and Chart Reviewed Final Anesthetic Review Family History of Problems with Anesthesia: No History of Problems with Anesthesia: No NPO: Yes ASA Class: II Final Preanesthetic Review: No Changes in Pt Med Stat, Meds/Allgs Chart Reviewed, Consent Obtained/Reviewed and Anes Risks/Benef Reviewed Patient Risk: Intermediate Procedure Risk: Intermediate Assessment/Block/Sedation in SS: Assess/Block/Sedation-SS Anesthetic Plan Anesthetic Plan: GA Disposition: Standard PACU and Inp. Admit - Standard Bed
[2023-12-23] VITALS (14 sets, daily range): BP systolic 88–144; BP diastolic 42–86; PULSE 61–80; RESP 14–20; TEMP 36–37.1; O2SAT 88–100; BMI 26.1
--- NOTE | ~2023-12-23 | XR_ITS ---
EXAMINATION: XR PELVIS CLINICAL INFORMATION: Left total hip replacement COMPARISON: 03/14/2023 TECHNIQUE: AP view of the pelvis. FINDINGS: Upper pelvis is not included. Visualized SI joints minimally sclerotic bilaterally, right slightly more than left. Visualized bony pelvis is intact. No right hip joint narrowing. Left total hip replacement has been performed. Prosthetic components appear appropriate in position with satisfactory alignment. Partial visualization of left hip skin yessenia. Left hemipelvic phlebolith. XR/XR pelvis 1-2V IMPRESSION: Left total hip replacement
--- OUTSIDE RECORDS SUMMARY | 2023-12-23 06:25 | XMS_ITS | Continuity of Care Document ---
Author Organization [facility] Address [address] [place] [id number]- Care Team Providers Care Vessel Liner Name Role Phone Alfredo MADRID, Sonido W Primary Care Physician [phone] Encounter [facility] Date(s): 01/29/21 - 02/28/21 [facility] [address] [place] [id number] Allergies, Adverse Reactions, Alerts Substance Reaction Severity Status NKA Active Immunizations Given and Recorded Vaccine Date Status Refusal Reason influenza virus vaccine, inactivated 1 05/16/16 Gi ellie pneumococcal 13-valent vaccine 09/03/13 Given tetanus/diphtheria/pertussis, acel(Tdap) 2 03/20/10 Given Pneumovax 23 (oldterm) 3 03/20/10 Given 1Admin Note: Afluria made by [employer] 2Admin Note: VIS Given 3Admin Note: VIS Given Medications Denavir 1% topical cream 1 applicator, Topically, Every 2 hours, As directed, # 1.5 Gm, 3 Refills, Maintenance, 09/07/14 8:07:41, 1 applicator Topically Every 2 hours,Instr:As directed Start Date: 09/07/14 Status: Ordered Genvoya oral tablet 1 tablet, By Mouth, Daily, with food, # 90 tablet, 1 Refills, Maintenance, 01/29/21 15:36:00 EDT, Tablet, [id number], 1 tablet By Mouth Daily,x90 days,Instr:with food, 172, cm, 05/04/20 8:16:00 EST, Height Start Date: 01/29/21 Stop Date: 07/28/21 Status: Ordered Multivitamin Tablet 1 tablet, By Mouth, Daily, # 30 tablet, 0 Refills, Maintenance, Tablet Start Date: 10/07/11 Status: Ordered Andrew-E Andrew-E, See Instructions, Refills 0, Maintenance, 03/12/18 9:30:35 EDT, Compound Start Date: 03/12/18 Status: Ordered Problem List Condition Effective Dates Status Health Status Inform ant Anxiety disorder(Confirmed) Active ADHD (attention deficit hype ractivity disorder)(Confirmed) Active Chronic fatigue(Confirmed) Active 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 4S/P Lexpro and Wellbutrin, that were d/keila due to side effects. Off since 05/2017 5US(2018):Large, thinly septated fluid collections, predominantly in the superior aspect of each hemiscrotum. These are nonspecific as to etiology but benign in morphology. Limited differential considerations include spermatoceles, epididymal cysts and cystadenoma. Loculated hydroceles and cystic ectasia of the rete testis are less likely Social History Social History Type Response Smoking Status Never smoker; Tobacc o user in household: No entered on: 03/12/18 Sex
--- OUTSIDE RECORDS SUMMARY | 2023-12-23 06:25 | XMS_ITS | Continuity of Care Document ---
Author Organization [facility] Address [address] [place] [address]- Care Team Providers Care Carbon Brushes Assembler Name Role Phone Alrfedo MADRID, Sonido W Primary Care Physician [phone] Encounter [facility] [place] Date(s): 08/23/19 - 12/04/19 [facility] [address] [place] [address]- [facility] Attending Physician: Yoli MADRID, Lefty Hammer Admitting Physician: Lefty Kent MD Allergies, Adverse Reactions, Alerts Substance Reaction Severity [...] tablet, By Mouth, Daily, with food, # 30 tablet, 0 Refills, Maintenance, 07/31/16 8:47:08, Tablet, 1 tablet By Mouth Daily,Instr:with food Start Date: 07/31/16 Status: Ordered Genvoya oral tablet 1 tablet, By Mouth, Daily, with food, # 90 tablet, 3 Refills, Maintenance, 08/23/19 14:42:00 EDT, Tablet, [id number], 1 tablet By Mouth Daily,Instr:with food, 172, cm, 04/16/19 8:12:00 EDT, Height Start Date: 08/23/19 Status: Ordered Multivitamin Tablet 1 tablet, By [...] 5 Active 1S/P radiation 2syphilis 3Followed by [facility]. 4S/P Lexpro and Wellbutrin, that were [...]
--- OUTSIDE RECORDS SUMMARY | 2023-12-23 06:25 | XMS_ITS | Continuity of Care Document ---
Author Organization [facility] Address [address] [place] [phone]- Care Team Providers Care Autocad Detailer Name Role Phone Alfredo MADRID, Sonido W Primary Care Physician Encounter [facility] [place] Date(s): 04/05/21 - 05/05/21 [facility] [address] [place] [address]- Attending Physician: Silvia Garcia Admitting Physician: Silvia Garcia Referring Physician: Silvia Garcia Allergies, Adverse Reactions, Alerts Substance Reaction Severity [...] 5 Active 1S/P radiation 2syphilis 3Followed by [facility]. 4S/P Lexpro and Wellbutrin, that were [...]
--- OUTSIDE RECORDS SUMMARY | 2023-12-23 06:25 | XMS_ITS | Continuity of Care Document ---
Author Organization [facility] Address [address] [place] [address]- Care Team Providers Care Consulting Hr Professional Name Role Phone Alfredo MARDID, Sonido W Primary Care Physician Encounter [facility] [place] Date(s): 05/04/20 - 06/03/20 [facility] [address] [place] [address]- Attending Physician: Silvia Garcia Admitting Physician: Silvia Garcia Referring Physician: AdmtrSilvia Allergies, Adverse Reactions, Alerts Substance Reaction Severity [...] EDT, Height Start Date: 08/23/19 Status: Ordered Genvoya oral tablet 1 tablet, By Mouth, Daily, with food, # 30 tablet, 0 Refills, Maintenance, 07/31/16 8:47:08, Tablet, 1 tablet By Mouth Daily,Instr:with food Start Date: 07/31/16 Status: Ordered Multivitamin Tablet 1 tablet, By [...] 5 Active 1S/P radiation 2syphilis 3Followed by [facility] ID. 4S/P Lexpro and Wellbutrin, that were [...]
--- OUTSIDE RECORDS SUMMARY | 2023-12-23 06:25 | XMS_ITS | Continuity of Care Document ---
Author Organization [facility] Address [address] [place] [address]- Care Team Providers Care Rapid Outsole Stitcher Name Role Phone Alfredo MADRID, Sonido W Primary Care Physician Encounter [facility] Date(s): 11/04/19 - 12/04/19 [facility] [address] [place] [address]- [facility] Attending Physician: Silvia Garcia Admitting Physician: Silvia [...] 5 Active 1S/P radiation 2syphilis 3Followed by [facility] ID. 4S/P Lexpro and Wellbutrin, that [...]
--- OUTSIDE RECORDS SUMMARY | 2023-12-23 06:25 | XMS_ITS | Continuity of Care Document ---
Author Organization [facility] Address [address] [place] [address]- Care Team Providers Care Termite Inspector Name Role Phone Alfredo MADRID, Sonido W Primary Care Physician [phone] Encounter [facility] Date(s): 01/31/21 - 03/02/21 [facility] [address] [place] [id number] Allergies, Adverse Reactions, Alerts Substance Reaction Severity [...] 5 Active 1S/P radiation 2syphilis 3Followed by [facility]. 4S/P Lexpro and Wellbutrin, that were [...]
--- OUTSIDE RECORDS SUMMARY | 2023-12-23 06:26 | XMS_ITS | Continuity of Care Document ---
Author Organization [facility] Address [address] [place] [phone]- Care Team Providers Care Nuclear Plant Equipment Operator Name Role Phone Alfredo MADRID, Sonido W Primary Care Physician [facility] [facility] [place](s[place] 09/06/21 - 10/06/21 [facility] [address] [place] [id number] Attending Physician: Silvia Garcia Admitting Physician: Silvia Garcia Referring Physician: Silvia Garcia Allergies, Adverse Reactions, Alerts No Known Allergies Immunizations Given and Recorded Vaccine Date Status [...] oral tablet 1 tablet, By Mouth, Daily, WITH FOOD., # 90 tablet, 3 Refills, 09/06/21 10:15:00 EDT, [id number], 90, 1 tablet By Mouth Daily,Instr:WITH FOOD., 172, cm, 09/06/21 10:11:00 EDT, Height Start Date: 09/06/21 Status: Ordered Multivitamin Tablet 1 tablet, By [...] disorder(Confirmed) Active Lipoma of neck-5 cm(Confirmed) Active Lipoma of neck (5.1 cm)(Confirmed) Active Pure hypercholesterolemia(Confirmed) Active Recurrent major depressive disorder(Confirmed) 4 Active Testicular lump(Confirmed) 5 Active Skin ulcer of back(Confirmed) Active 1S/P radiation 2syphilis 3Followed by [facility] ID. 4S/P Lexpro and Wellbutrin, that were [...]
--- OUTSIDE RECORDS SUMMARY | 2023-12-23 06:26 | XMS_ITS | Continuity of Care Document ---
Author Organization [facility] Address [address] [place] [address]- Care Team Providers Care Finish Patcher Name Role Phone Alfredo MADRID, Sonido W Primary Care Physician [phone] [place] [facility] 08/03/19 - 09/25/19 [facility] [address] [place] [address]- [facility] Attending Physician: Lefty Kent MD Admitting Physician: Lefty Kent MD Allergies, Adverse [...] 5 Active 1S/P radiation 2syphilis 3Followed by [facility] ID. 4S/P Lexpro and Wellbutrin, that [...]
--- OUTSIDE RECORDS SUMMARY | 2023-12-23 06:26 | XMS_ITS | Continuity of Care Document ---
Author Organization [facility] Address Unknown Care Team Providers Care Cementer Name Role Phone Alfredo MADRID, Sonido W Primary Care Physician Encounter [place] Date(s): 08/06/21 - 09/05/21 [facility] Allergies, Adverse Reactions, Alerts No Known Allergies [...] Mouth, Daily, WITH FOOD., # 90 tablet, 1 Refills, [facility], 90, TAKE 1 TABLET BY MOUTH EVERY DAY WITH FOOD, 172, cm, 05/16/21 14:48:00 EST, Height Start Date: 08/06/21 Status: Ordered Multivitamin Tablet 1 tablet, By [...] back(Confirmed) Active 1S/P radiation 2syphilis 3Followed by [facility]. 4S/P Lexpro and Wellbutrin, that were [...]
--- OUTSIDE RECORDS SUMMARY | 2023-12-23 06:26 | XMS_ITS | Continuity of Care Document ---
Author Organization [facility] Address [address] [place] [address]- Care Team Providers Care Senior Accountant Name Role Phone Sonido Fuentes MD Primary Care Physician [place] [facility]s): 01/29/21 - 05/05/21 [facility] [address] [place] [address]- Attending Physician: Lefty Kent MD Admitting Physician: Lefty Kent MD Referring Physician: Sonido Fuentes MD Allergies, Adverse Reactions, Alerts Substance Reaction [...] 5 Active 1S/P radiation 2syphilis 3Followed by [facility] ID. 4S/P Lexpro and Wellbutrin, that were [...]
[2023-12-23] MEDS: oxyCODONE HCl ER 10 MG TAB.ER.12H PO ×2 (06:45→20:37)
[2023-12-23] MEDS: Lactated Ringers 1,000 ML 100 ML IVCONT ×3 (06:53→20:31)
--- NOTE | 2023-12-23 07:27 | MHC.SHP ---
Pre-Procedural Eval Section A - 24 Hr Update-Section A only Date of Service: 12/23/23 The patient is an INPATIENT: No Changes since office visit: No Cold of Flu in the past 2 weeks, No New Medical Problems, No Changes in Medication and No Patient answered all questions The patient has been examined within 24 hours of the surgical procedure. The History & Physical has been completed within 30 days and I have reviewed it.: Yes Section B - Complete if H&P > 30 days Chief Complaint: LTHA Allergies: Allergies Allergy/AdvReac Type Severity Reaction Status Date / Time No Known Allergies Allergy Verified 12/23/23 06:14 Plan I have reviewed the history and physical and performed a pertinent physical examination on my patient. No changes have occurred unless specified. Time Spent With Patient Time: Total time managing care of this patient today ____ minutes.
--- NOTE | 2023-12-23 09:09 | PM.OP ---
Brief Operative Note Date of Service: 12/23/23 Pre-op diagnosis: Left hip OA Post-op diagnosis: same Procedure: Left KEVIN Implants: Vonda Trident2 52/lip liner [place] Accolade2 #5 132 with +0/36 ceramic femoral head Surgeon: Manuelito Bee MD Anesthesia: GETA and local Was an Milling Machine Operator used for this Procedure?: No Milling Machine Operator: Jessica Golden Estimated blood loss (mL): 200 IV fluids (mL): 1,000 Pathology: other Condition: stable Disposition: PACU Assessment and Plan (No Qualifiers) Assessment and Plan (1) History of total left hip replacement: Status: Acute Plan: ASA BID WBAT F/U 10-14 d
[2023-12-23] MEDS: fentaNYL citrate/PF 100 MCG/2 ML VIAL 25 MCG IVPUSH ×2 (09:39→09:44)
[2023-12-23] MEDS: HYDROmorphone HCl 0.5 MG/0.5 ML SYRINGE 0.25 MG IVPUSH (11:27)
--- NOTE | 2023-12-23 11:41 | PHA.MEDREC ---
Pharmacy Consult ? Medication Reconciliation Pharmacy has completed the medication reconciliation. Saw that Crao Crabtree in short stay surgery confirmed medication with patient. I went up to confirm as well, patient had family at bedside but he was able to confirm his Genvoya medication, that he takes it once daily and he took it last night.
[2023-12-23] MEDS: ceFAZolin Sodium/Dextrose,Iso 2 GM/50 ML PIGGYBACK IV (13:55)
--- NOTE | 2023-12-23 16:15 | PC.NURSE ---
Pt ambulated to BR with PT and voided once. DTV#[id number].
[2023-12-23] MEDS: Docusate Sodium 100 MG CAPSULE PO (20:32)
[2023-12-23] MEDS: Celecoxib 200 MG CAPSULE PO (20:32)
[2023-12-24 02:48] VITALS: BP 103/60; PULSE 73; RESP 16; TEMP 37.3; O2SAT 94
[2023-12-24] MEDS: Lactated Ringers 1,000 ML 100 ML IVCONT (06:05)
[2023-12-24 06:24] LABS: MANUAL DIFF FLAG NO
[2023-12-24 06:31] LABS: Basophils Percent Auto 0.1 % (0-2); Hematocrit 33.8 % (42.0-52.0); Hemoglobin 11.9 g/dl (14.0-18.0); Imm Gran Abs Auto 0.04 X10*3/uL (0.00-0.03); Imm Gran Pct Auto 0.3 % (0.0-0.4); Lymphocytes Absolute Auto 0.8 X10*3/uL (1.2-4.9); Lymphocytes Percent Auto 7.1 % (20-40); Mean Corpuscular HGB Conc 35.2 g/dl (31.0-36.0); Mean Corpuscular Hemoglobin 32.8 pg (27.0-33.0); Mean Corpuscular Volume 93.1 fL (80.0-98.0); Mean Platelet Volume 8.8 fL (9.4-12.4); Monocytes Percent Auto 8.4 % (2-11); Neutrophils Absolute Auto 9.7 x10*3/uL (2.0-8.3); Neutrophils Percent Auto 84.1 % (45-73); Platelet Count 234 X10*3/uL (160-400); Red Blood Count 3.63 X10*6/uL (4.60-5.80); Red Cell Distribution Width 12.8 % (11.0-16.0); White Blood Count 11.5 X10*3/uL (4.8-10.8)
--- NOTE | 2023-12-24 06:45 | P.DS_ITS ---
DS: Providers Provider Date of Service: 12/24/23 <Jessica Golden PA-C - Last Filed: 12/24/23 06:46> Date of admission: 12/23/23 06:21 <KATY Black Last Filed: 12/24/23 06:46> Primary care physician: Unknown Physician <Jessica Golden PA-C - Last Filed: 12/24/23 06:46> DS: Diagnosis Discharge Diagnosis (1) History of total left hip replacement: Status: Acute <Jessica Golden PA-C - Last Filed: 12/24/23 06:46> DS: Summary Hospital Course Hospital Course: The patient underwent a successful left total hip arthroplasty on 12/23/[address] Bee, was transferred to PACU and then to the floor to recover. During their stay, their vitals were stable, afebrile at 99.1. Labs were unremarkable, H/H 11.9/33.8. POD 1 he was started on aspirin twice a day for DVT ppx, they also received Physical Therapy services twice a day. Physical therapy should include gait training, core and lumbar strength, glute strength. Posterior precautions intact. WBAT. Prior to discharge, her dressing was changed, incision clean dry and intact, new Aquacel dressing applied. The Aquacel dressing should remain intact and dry at all times. Any concerns with the dressing, please contact orthopedic office. No showering. The plan is to be discharged home with vna <Jessica Golden PA-C - Last Filed: 12/24/23 06:46> Time Attestation Discharge Coordination Time (in mins): 30 <Martha Dasilva PA-C - Last Filed: 12/24/23 07:40> Quality: Safe Use of Opioids Does Pt have an Active Cancer Diagnosis on the Problem List?: No <Martha Dasilva PA-C - Last Filed: 12/24/23 07:40> Quality: Stroke Does the patient have a stroke diagnosis?: No <Martha Dasilva PA-C - Last Filed: 12/24/23 07:40> Physical Exam Vital Signs: Vital Signs: Last Vital Signs Temp 99.1 F 12/24/23 02:48 Pulse 73 12/24/23 02:48 Resp 16 12/24/23 02:48 BP 103/60 12/24/23 02:48 Pulse Ox 94 12/24/23 02:48 O2 Del Method Room Air 12/24/23 02:48 O2 Flow Rate 3 12/23/23 19:47 BMI result Body Mass Index 26.1 <Jessica Golden PA-C - Last Filed: 12/24/23 06:46> Extrem: Other: left hip dressing is c/d/i. Able to dorsi/plantar flex. Calf is supple and nontender. Sensation intact. Pedal pulse intact. <KATY Kowalski Last Filed: 12/24/23 07:40> DS: Data Data Completed and Pending Pending studies at discharge: Pending at discharge 12/23/23 08:22 Surgical [PTH] Routine <KATY Black Last Filed: 12/24/23 06:46> Labs on day of discharge: Laboratory Results - last 24 hr 12/24/23 06:20 WBC 11.5 H RBC 3.63 L D Hgb 11.9 L Hct 33.8 L D MCV 93.1 MCH 32.8 MCHC 35.2 RDW 12.8 Plt Count 234 D MPV 8.8 L Immature Gran % (Auto) 0.3 Neut % (Auto) 84.1 H Lymph % (Auto) 7.1 L [place] % (Auto) 8.4 Eos % (Auto) 0.0 Baso % (Auto) 0.1 Lymph # (Auto) 0.8 L [place] # (Auto) 1.0 Eos # (Auto) 0.0 Baso # (Auto) 0.0 Abs Immat Gran (auto) 0.04 H Absolute Neuts (auto) 9.7 H Absolute Nucleated RBC 0.000 Nucleated RBC % (auto) 0.0 <KATY Black Last Filed: 12/24/23 06:46> Discharge Plan Discharge Anticipated Discharge Date/Time: 12/24/23 11:39 <KATY Black Last Filed: 12/24/23 06:46> Patient Disposition: Home Health Service <KATY Black Last Filed: 12/24/23 06:46> Discharge Diagnosis: lt sam <Jessica Golden PA-C - Last Filed: 12/24/23 06:46> lt sam <Martha Dasilva PA-C - Last Filed: 12/24/23 07:40> Referrals: Jessica Golden PA-C [Physician Relationship Executive] - 2 Weeks (01/08/24 11:30 [facility] [place] [facility] Jessica Golden PA-C) <Jessica Golden PA-C - Last Filed: 12/24/23 06:46> Discharge Medications: New acetaminophen 325 mg Tablet 650 mg PO Q6H PRN (Reason: Pain, Mild (Pain Scale 1-3), fever or headache) 30 Days Qty: 240 0RF aspirin 325 mg Tablet 325 mg PO BID 42 Days Qty: 84 0RF celecoxib 200 mg Capsule 200 mg PO BID 30 Days Qty: 60 0RF oxycodone 5 mg Tablet 5 mg PO Q4H PRN (Reason: Pain, Moderate(Pain Scale 4-6)) 7 Days Qty: 42 0RF Rx Instructions: Partial Fill upon patient request. docusate sodium 100 mg Capsule 100 mg PO BID 7 Days Qty: 14 0RF Continued (DME) walker [facility] [place] See Rx Instructions .ROUTE .MEDSUPPLY Qty: 1 0RF Rx Instructions: Folding front wheeled walker Genvoya [phone] mg tablet 1 tab PO DAILY 30 Days Qty: 30 0RF Rx Instructions: must administer with a meal/food <Jessica Golden PA-C - Last Filed: 12/24/23 06:46> Discharge Orders: Discharge Order (Routine); Ordered 12/24/23 Ordered By: Martha Dasilva <Jessica Golden PA-C - Last Filed: 12/24/23 06:46> Diet: Regular diet <Jessica Golden PA-C - Last Filed: 12/24/23 06:46> Regular diet <Martha Dasilva PA-C - Last Filed: 12/24/23 07:40> Activity on Discharge: Use cane or walker <Ta-RhondaKATY Mcmanus Filed: 12/24/23 06:46> Use cane or walker <KATY Kowalski Last Filed: 12/24/23 07:40> Stand Alone Forms: Patient Portal Discharge page <KATY Black Filed: 12/24/23 06:46> Print Language: Turkish <KATY Black Filed: 12/24/23 06:46> Care Plan Goals: Restore function of joint <KATY Black Filed: 12/24/23 06:46> Health Concerns: none <KATY Black Filed: 12/24/23 06:46> Plan of Treatment: * Physical Therapy for Total hip arthroplasty: wbat, posterior precautions, gait training, ROM, strength * Limit stair climbing * No showering, no tub bath-keep dressing clean, dry and intact * No driving x6 weeks * Continue Aspirin twice a day x 6 weeks * Follow up with [facility] [place] Orthopedics in 2 weeks: * <KATY Black Filed: 12/24/23 06:46> Assessment: Physical Therapy Pain management DVT prophylaxis <KATY Black Filed: 12/24/23 06:46>
--- NOTE | 2023-12-24 06:46 | W.MHC.F2F ---
Service Date Service Date: 12/24/23 Encounter Date of encounter: 12/24/23 Reasons for Services Signs and symptoms assessed: Weakness, poor balance, poor gait mechanics Reason for physical therapy: home safety and mobility, therapeutic exercises, restore joint function, gait/transfer training, ADL training and energy conservation Reason for occupational therapy: home safety and mobility, therapeutic exercises, restore joint function, gait/transfer training, ADL training and energy conservation Homebound: Leaving the home is medically contraindicated at this time without the asist of a device and/or another person due th the listed conditions above and below. Reason homebound: unsteady gait / fall risk, pain with ambulation, poor balance / fall risk and unable to drive Certification: Based on the above findings, I certify that this patient is confined to the home and needs intermittent long-term care, physical therapy and/or speech therapy, or continues to need occupational therapy. The patient is under my care, and I have initiated the establishment of the plan of care. The patient will be followed by a physician who will periodically review the plan of care. Time Spent With Patient Time: Total time managing care of this patient today ____ minutes.
[2023-12-24 06:47] LABS: Anion Gap 10 (12-20); Blood Urea Nitrogen 16 mg/dL (9-16); Calcium 8.9 mg/dL (8.4-10.2); Carbon Dioxide 22 mmol/L (22-29); Chloride 108 mmol/L (96-108); Creatinine Clr Calc Pharmacy 101.9; Estimated Glomerular Filt Rate > 60; Glucose Fasting 145 mg/dL (60-99); Potassium 4.1 mmol/L (3.3-5.1); Sodium 136 mmol/L (135-145)
[2023-12-24] MEDS: oxyCODONE HCl Immed Release 5 MG TABLET PO ×2 (07:36→11:20)
[2023-12-24] MEDS: Aspirin 325 MG TABLET PO (07:36)
[2023-12-24] MEDS: Docusate Sodium 100 MG CAPSULE PO (07:36)
[2023-12-24] MEDS: Celecoxib 200 MG CAPSULE PO (07:36)
[2023-12-24] MEDS: oxyCODONE HCl ER 10 MG TAB.ER.12H PO (07:37)
[2023-12-24 08:00] VITALS: BP 132/89; PULSE 81; RESP 18; TEMP 36.6; O2SAT 100
--- NOTE | 2023-12-24 08:39 | HO.POSTANES ---
Post Anesthesia Evaluation Post Anesthesia Evaluation Date of Service: 12/24/23 Vital Signs: Vital Signs Temp Pulse Resp BP Pulse Ox O2 Del Method 12/24/23 08:00 97.8 F 81 18 132/89 100 Room Air 12/24/23 02:48 99.1 F 73 16 103/60 94 Room Air 12/23/23 23:00 98.8 F 76 16 116/70 96 Room Air Anesthesia: General Endotracheal-GETA Mental Status: Awake Pain Control: Satisfactory Nausea/Vomiting: None Hydration: Adequate Anesthesia-Related Issues: No Anes. Related Issues
--- NOTE | 2023-12-24 09:52 | MHC.CM.PN ---
PT REPORTS HE LIVES WITH HIS S/O, DION, AND IS INDEPENDENT WITH CARE AND MOBILITY AT BASELINE HE HAD NO SERVICES OR DME SUPERVISOR CUSTOMER COMPLAINT SERVICE PT DOES NOT HAVE A PCP, BUT SAYS HE SEES A SPECIALIST FOR THE ONLY ILLNESS HE HAS, AND SHE PROVIDES ALL THE CARE HE NEEDS PT COMPLETED A HCP TODAY NAMING HIS FRIEND, LISBETH HIS HCA, AND HIS PARENTS HIS ALTERNATE AGENTS [facility] PT ALSO STATES HIS PARENTS WILL BE STAYING IN [place] FOR THE WEEK TO ASSIST HIM IF NEEDED PARENTS WILL TRANSPORT
--- NOTE | 2023-12-31 07:16 | P.OP_ITS ---
Operative Note Operative Note Date of Service: 12/23/23 Narrative: Date of Service: 12/23/23 Pre-op diagnosis: Left hip OA Post-op diagnosis: same Procedure: Left KEVIN Implants: Turner Trident2 52/lip liner Vonda Accolade2 #5 132 with +0/36 ceramic femoral head Surgeon: Manuelito Bee MD Anesthesia: GETA and local Was an Surveillance Dual Rate Officer used for this Procedure?: No Surveillance Dual Rate Officer: Jessica Golden Estimated blood loss (mL): 200 IV fluids (mL): 1,000 Pathology: other Condition: stable Disposition: PACU Patient was brought into the operating room and placed in the right lateral decubitus position. All bony prominences were well padded and the limb was prepped and draped in standard sterile fashion. A time-out was called to identify proper site procedure proper surgeon IV antibiotics and 1 g of tranexamic acid were administered. I began by making a curvilinear incision over the posterolateral aspect of the greater trochanter. Dissection was taken down to the tensor fascia which was incised in line with the incision and a Charnley retractor was placed. Cautery was used to maintain hemostasis. The hip was internally rotated and the external rotators were identified. The vessels were cauterized and a full-thickness capsular/external rotator layer was developed starting just proximal to the piriformis. This layer was tagged and a dull Hohmann retractor was placed underneath the neck in the hip was dislocated. A neck cut was made 1 cm proximal to the lesser trochanter and the head and neck were removed and measured 48-50mm on the back table. The head was deformed and eburnated. I then removed the labrum and cauterized the fovea. I started with a 44 reamer and medialized to the inner table. I sequentially reamed up to a size 52 and impacted a 52mm cup at 45 degrees of inclination and 25 degrees of version. I then placed a 20 deg posterior lipped liner and turned my attention to the femur. I identified the piriformis insertion and used this as a starting point for my cathi cutter. The medius tendon was protected with a Hibs retractor. A Charnley awl was inserted in the canal and a curved curette used to remove the lateral bone. I irrigated copiously. I then sequentially broached in the patient's natural version to a size 4 and placed my trial implants. I used a #5/132/+0 based on my pre-operative template. I removed all instrumentation and copiously irrigated. I placed my final femoral implant and again took the hip through range of motion and was satisfied with the stability and length. The final +0 implant was impacted in place and the hip reduced. I then irrigated copiously and placed 1 g of local tranexamic acid. I performed a capsular closure with 2.0 fiberwire, Jose's fascia with 0 Vicryl, subcuticular with 2-0 Vicryl and the skin with yessenia. Patient was placed into a sterile dressing. Patient was extubated brought to the recovery room in stable condition. There were no known complications.
== END 2023-12-24 11:45 | disposition home health service (06) | DRG 324 ==
LOC: HO.SSSA 06:24 → HO.S3 10:41
PROVIDERS: Nurse Practitioner; Orthopaedic Surgery; Physician Assistant; Admitting Provider Physician Assistant; Visit Provider Physician Assistant
PROC: 0SRB03A Replacement of Left Hip Joint with Ceramic Synthetic Substitute, Uncemented, Open Approach (ICD-10-PCS; CPT 27130; principal; 2023-12-23 07:30)
DX: M16.12 Unilateral primary osteoarthritis, left hip (principal); F32.9 Major depressive disorder, single episode, unspecified; F41.1 Generalized anxiety disorder; Z21 Asymptomatic human immunodeficiency virus [HIV] infection status; Z79.899 Other long term (current) drug therapy
CPT/HCPCS: 36415; 72170; 80048; 85025; 86850; 86900; 86901; 87640; 87641; 88304; 88311; 93005; 97110; 97116; 97162; 97166; 97530; C1776; J0131; J0690; J1100; J1170; J2250; J2371; J2405; J2704; J2795; J3010; J7120

== ENCOUNTER → 2023-12-23 06:21 | Outpatient (BNV) | payer BC, SELFPAY | PROVIDERS: Admitting Provider Physician Assistant; Visit Provider Orthopaedic Surgery | DX: Z47.1 Aftercare following joint replacement surgery (principal); Z96.642 Presence of left artificial hip joint | CPT/HCPCS: 27130; 99024; G0180 ==

== ENCOUNTER 2023-12-26 13:58 | Outpatient (AMB) | payer BC, SELFPAY ==
--- NOTE | 2023-12-26 14:03 | MHC.OFFVIS ---
Intake Visit Reasons: 2WK PO: L KEVIN w/NE 12/23/23-bandage changed Intake Note: Aman is a 58 year old male who presents today for a bandage change s/p left KEVIN w/NE 12/23/23. Allergies No Known Allergies Allergy (Verified 12/23/23 06:14) HPI HPI 2WK PO: L KEVIN w/NE 12/23/23-bandage changed: Details: 58-year-old male who presents in the office today for a bandage change; 3 days status post left total hip arthroplasty, which was performed on 12/23/[address] Bee. ? [facility] Medical History Takes dietary supplements Depression Skin cancer Anxiety HIV (human immunodeficiency virus infection) Osteoarthritis of left hip Surgical History No pertinent past surgical history Family History Mother Cardiovascular disease Father Cardiovascular disease Social History Household Members: Significant Other Household Members Other:: Ambrosio Housing: House Are you a primary home care provider to a significant other at home: No Do you presently have visiting nurse or other home services: No 75 years or older and lives alone: No Alcohol intake: current Alcohol intake frequency: does not drink Alcohol type: wine Patient Tobacco Use Status: Never used Tobacco e-Cigarette/Vaping Use: Never Used service: No Current occupational status: employed Current occupation: [employer] Current occupational exposures/hazards: No Cognitive needs: No Hearing needs: No Vision needs: Yes (wears glasses) Review of Systems Const All systems reviewed & are unremarkable except as noted in HPI and below Physical Exam Const General: cooperative, healthy appearing and no acute distress Resp Effort & Inspection: normal respiratory effort and able to speak in complete sentences Cardio Rate: regular rate Peripheral pulses: Peripheral pulses 2+ throughout GI Palpation (GI): Soft to palpation Skin Lesions: no lesions Rashes: no rashes Extrem Other: Left hip: Incision site is clean, dry, and intact. [place] are intact. No surrounding erythema or drainage. No signs of infections.?NVI. ? Assessment & Plan Assessment & Plan (1) History of total left hip replacement: Code(s): Z96.642 - Presence of left artificial hip joint Category: Surgical Plan Mr. Cowan is a 58-year-old male who presents in the office today for a bandage change; 3 days status post left total hip arthroplasty, which was performed on 12/23/[address] Bee.?? ? The AquaCell dressing was removed, and the area was cleaned. A new AquaCell dressing was applied over the incision site in the office today. Follow-up will be at his regular scheduled appointment, or sooner if needed. ? Patient Instructions: Scribed by Yvette Triana medical insurance collector, for Martha Dasilva PA-C on 12/26/2023 at 2:55 pm, EST.? Coding Level of Care Code Global (44504) Diagnoses History of total left hip replacement Z96.642
== END 2023-12-26 14:10 | disposition home or self-care (01) ==
LOC: HO.HOS 13:58
PROVIDERS: Visit Provider Physician Assistant
DX: Z96.642 Presence of left artificial hip joint (principal)
CPT/HCPCS: 99024

== ENCOUNTER → 2023-12-26 13:58 | Outpatient (BNVA) | payer BC, SELFPAY | PROVIDERS: Visit Provider Physician Assistant ==

== ENCOUNTER 2023-12-30 13:37 | Outpatient (AMB) | payer BC, SELFPAY ==
[2023-12-30 13:41] VITALS: BP 114/72; PULSE 89; BMI 27.2
--- NOTE | 2023-12-30 13:41 | A.OFFVIS_ITS ---
Vital Signs 12/30/23 13:41 Height 5 ft 9 in Weight 184 lb 4.903 oz BMI 27.2 BP 114/72 Blood Pressure Location Lt brachial Position Sitting Pulse 89 Pulse Source Pulse Oximeter Intake Visit Reasons: s/p cta / echo hs Boner Meat: Boner Meat Present Allergies No Known Allergies Allergy (Verified 12/23/23 06:14) Medication List - Last Reconciled 12/30/23 by Ashley Torre NP-C acetaminophen 650 mg (2 x 325 mg) PO Q6H PRN 30 days aspirin 325 mg PO BID 42 days celecoxib 200 mg PO BID 30 days cdpfmpk-hmb-xnpyd-tenof alafen [phone] mg (Genvoya) 1 tab PO DAILY 30 days walker Folding front wheeled walker HPI HPI s/p cta / echo hs: Details: Aman is a 58-year-old male with past medical history of HIV, anxiety/depression, osteoarthritis of the left hip, new finding of right bundle branch block who recently underwent cardiac evaluation as part of preop screening for total left hip replacement. He had his echocardiogram and CTA of the coronary arteries which did not show significant findings. He was cleared for his hip surgery and underwent total hip replacement on 12/23/2023. Today he reports having weakness and discomfort from his recent left total hip replacement. He is ambulating with a walker. He is not having any cardiac symptoms. No chest discomfort, shortness of breath, palpitations, lightheadedness, presyncope, syncope, falls. His parents are present. [facility] Medical History Takes dietary supplements Depression Skin cancer Anxiety HIV (human immunodeficiency virus infection) Osteoarthritis of left hip Surgical History Hip joint replacement status No pertinent past surgical history Family History Mother Cardiovascular disease Father Cardiovascular disease Social History Household Members: Significant Other Household Members Other:: Ambrosio Housing: House Are you a primary child care director to a significant other at home: No Do you presently have visiting nurse or other home services: No 75 years or older and lives alone: No Alcohol intake: current Alcohol intake frequency: does not drink Alcohol type: wine Patient Tobacco Use Status: Never used Tobacco e-Cigarette/Vaping Use: Never Used service: No Current occupational status: employed Current occupation: [employer] Current occupational exposures/hazards: No Cognitive needs: No Hearing needs: No Vision needs: Yes (wears glasses) Review of Systems Const Details: weakness and discomfort from hip surgery last week All systems reviewed & are unremarkable except as noted in HPI and below ENT Denies dizziness Card Denies chest pain, Denies chest pain at rest, Denies chest pain with activity, Denies rapid heart rate, Denies pedal edema, Denies edema, Reports leg edema, Denies lightheadedness, Denies palpitations, Denies dyspnea, Denies dyspnea on exertion and Denies orthopnea Resp Denies cough, Denies dyspnea and Denies dyspnea on exertion GI Denies hematochezia and Denies change in stool character Musc Details: using walker Reports abnormal gait, Reports limited range of motion, Denies muscle cramps, Denies muscle weakness, Denies numbness, Denies radiating pain into limb, Denies stiffness and Denies tingling Neuro Reports abnormal gait, Denies dizziness, Denies numbness and Denies tingling Endo Denies palpitations Physical Exam Vital Signs: Last Vital Signs Pulse 89 12/30/23 13:41 BP 114/72 12/30/23 13:41 BMI result Body Mass Index 27.2 Const Other: Facial grimace indicating discomfort with movement, ambulates with a walker. General: cooperative and no acute distress Orientation/consciousness: patient oriented x3 Neck Neck: Yes normal visual inspection Resp Effort & Inspection: normal respiratory effort Auscultation: clear to auscultation bilaterally, no crackles, no rales, no rhonchi and no wheezes Cardio Jugular venous distension: no JVD Rate: regular rate Rhythm: regular rhythm Heart sounds: S1 normal heart sound present, S2 normal heart sound present, no murmurs and no rubs Neuro General: patient oriented x3 Extrem General: Yes normal to inspection and No no pedal edema Psych Appearance: grossly normal Mental Status: mental status grossly normal Speech and movement: Normal speech and movement present Assessment & Plan Assessment & Plan (1) RBBB: Code(s): I45.10 - Unspecified right bundle-branch block Category: Medical Plan: EKG done on 09/30/2023 as part of preop evaluation showing sinus rhythm with PVC and right bundle branch block, rate 74. No prior EKGs for comparison. His surgery was canceled at that time and he was referred to Cardiology for evaluation. He has no significant cardiac risk factors except for age. He has no cardiac history. He did have an echocardiogram on 10/15/2023 showing EF 59%, no valve or regional wall motion abnormalities. A coronary CTA was done on 10/17/2023 showing no significant coronary artery disease, minimal calcifications noted. He was considered low risk for his hip replacement surgery which he had done on 12/23/2023. Today he presents for cardiology follow-up to go over his test results in detail. Spent time with him discussing right bundle branch block, test results and how they relate to his heart findings. Offered him much reassurance that his heart is functioning well. He does admit to having high anxiety. Will arrange for a cardiology follow-up in 1 year and plan to do repeat EKG at that time to assess for any further electrical issues. Unknown chronicity of the right bundle branch block. (2) History of total left hip replacement: Code(s): Z96.642 - Presence of left artificial hip joint Category: Surgical Plan: As above Plan Time spent on chart review, documentation, interview and assessment Coding Level of Care Code Est Pt Level 3 (22374) Diagnoses RBBB I45.10 History of total left hip replacement Z96.642 Time Spent (min) 24
== END 2023-12-30 14:09 | disposition home or self-care (01) ==
PROVIDERS: Visit Provider Nurse Practitioner Family
DX: I45.10 Unspecified right bundle-branch block (principal); Z96.642 Presence of left artificial hip joint
CPT/HCPCS: 99213

== ENCOUNTER → 2023-12-30 13:37 | Outpatient (BNVA) | payer BC, SELFPAY | PROVIDERS: Visit Provider Nurse Practitioner Family ==

== ENCOUNTER 2024-01-08 11:29 | Outpatient (AMB) | payer BC, SELFPAY ==
--- NOTE | 2024-01-08 11:38 | A.OFFVIS_ITS ---
Vital Signs 01/08/24 11:42 Height 5 ft 9 in Weight 184 lb BMI 27.2 Intake Visit Reasons: 2WK PO: L KEVIN w/NE 12/23/23 Intake Note: Ely 58 year old male who presents today for a post operative visit s/p left KEVIN on 12/23/23 NE. Patient reports having a bowel issue after surgery. He states he was not expecting to feel this horrible after surgery. Allergies No Known Allergies Allergy (Verified 01/08/24 11:40) HPI HPI 2WK PO: L KEVIN w/NE 12/23/23: Details: Aman is a 58-year-old male who presents today for a 2 week postoperative left KEVIN with NE on 12/23/2023. He claims that following surgery, he is having intestinal problems. He reports that he did not anticipate feeling this awful after surgery. He reports that he continues to experience mild pain post surgery. He finds relief with the physical therapy. He stopped using a walker for ambulation. [facility] Medical History Takes dietary supplements Depression Skin cancer Anxiety HIV (human immunodeficiency virus infection) Osteoarthritis of left hip Surgical History Hip joint replacement status No pertinent past surgical history Family History Mother Cardiovascular disease Father Cardiovascular disease Social History Household Members: Significant Other Household Members Other:: Ambrosio Housing: House Are you a primary family day carer to a significant other at home: No Do you presently have visiting nurse or other home services: No 75 years or older and lives alone: No Alcohol intake: current Alcohol intake frequency: does not drink Alcohol type: wine Patient Tobacco Use Status: Never used Tobacco e-Cigarette/Vaping Use: Never Used service: No Current occupational status: employed Current occupation: [employer] Current occupational exposures/hazards: No Cognitive needs: No Hearing needs: No Vision needs: Yes (wears glasses) Review of Systems Const All systems reviewed & are unremarkable except as noted in HPI and below Physical Exam Vital Signs: BMI result Body Mass Index 27.2 Const General: cooperative, healthy appearing, comfortable and no acute distress Orientation/consciousness: patient oriented x3 Neck Neck: Yes normal visual inspection and Yes no JVD Chest Chest palpation & inspection: normal inspection of the chest Resp Effort & Inspection: normal respiratory effort Auscultation: clear to auscultation bilaterally, crackles (no), rales (no), rhonchi (no) and wheezes (no) Cardio Jugular venous distension: no JVD Rate: regular rate Rhythm: regular rhythm Heart sounds: S1 normal heart sound present, S2 normal heart sound present, Murmur heart sound present (no) and Rub heart sound present (no) Neuro General: patient oriented x3 Extrem Other: Left hip: Incision is clean, dry, and intact. No erythema, no drainage. No pain with range of motion. No pain with hip flexion. General: Yes normal to inspection, Yes no pedal edema and Yes no calf tenderness Assessment & Plan Assessment & Plan (1) History of total left hip replacement: Code(s): Z96.642 - Presence of left artificial hip joint Category: Surgical Plan Anoop removed, steri strips applied. He will begin to transition to Outpatient PT to continue working on Gait training, ROM and quad strength. No driving for another 4 weeks. He will require ppx abx for dental procedures. He will f/u in 4 weeks, sooner if needed. Patient Instructions: Scribed for Jessica Golden PA-C, by Thierno Marie ophthalmic medical assistant, on 01/08/2024 at 11:30 AM EST. IJessica PA-C, have personally reviewed and agree with the information entered by the scribe. Coding Level of Care Code Global (04906) Diagnoses History of total left hip replacement Z96.642
[2024-01-08 11:42] VITALS: BMI 27.2
== END 2024-01-08 13:44 | disposition home or self-care (01) ==
PROVIDERS: Visit Provider Physician Assistant
DX: Z96.642 Presence of left artificial hip joint (principal)
CPT/HCPCS: 99024

== ENCOUNTER → 2024-01-08 11:29 | Outpatient (BNVA) | payer BC, SELFPAY | PROVIDERS: Visit Provider Physician Assistant ==

== ENCOUNTER 2024-01-29 08:03 | Outpatient (REF) | payer BC, SELFPAY ==
--- NOTE | ~2024-01-29 | XR_ITS ---
EXAMINATION: XR PELVIS CLINICAL INFORMATION: Pain COMPARISON: Radiograph dated 01/02/2024. TECHNIQUE: 2 AP views of the pelvis are submitted. FINDINGS: Prosthetic components of the left total hip arthroplasty are appropriately aligned. No periprosthetic fracture. The right acetabular joint space is well-maintained. There is mild subchondral sclerosis and peripheral osteophyte formation of the right acetabular roof. The right femoral head is smooth. The sacroiliac joints are symmetric and well-maintained. The pubic symphysis is intact. There is a coarse left pelvic phlebolith. XR/XR pelvis 1-2V IMPRESSION: 1. An intact left hip total arthroplasty is seen, without hardware failure or loosening noted. 2. There is very mild osteoarthritic change of the right hip. 3. There is no fracture or dislocation. Electronically signed by: Ambrosio Grigsby MD 02/25/2024 08:08 PM EDT
== END 2024-01-29 08:04 | disposition home or self-care (01) ==
LOC: HO.HOSX 08:03
PROVIDERS: Visit Provider Orthopaedic Surgery
DX: M25.559 Pain in unspecified hip (principal); Z96.642 Presence of left artificial hip joint
CPT/HCPCS: 72170

== ENCOUNTER 2024-01-29 08:36 | Outpatient (AMB) | payer BC, SELFPAY ==
[2024-01-29 08:40] VITALS: BMI 27.2
--- NOTE | 2024-01-29 08:40 | MHC.OFFVIS ---
Vital Signs 01/29/24 08:40 Height 5 ft 9 in Weight 184 lb BMI 27.2 Intake Visit Reasons: 6WK PO: L KEVIN w/NE 12/23/23 Intake Note: Ely 58 year old male who presents today for a post operative visit s/p left KEVIN on 12/23/23 NE Allergies No Known Allergies Allergy (Verified 01/08/24 11:40) HPI HPI 6WK PO: L KEVIN w/NE 12/23/23: Details: Ely 58 year old male who presents today for a post operative visit s/p left KEVIN on 12/23/23 NE. Aman is frustrated he states he should be doing better. He is limping. He denies fevers and chills. He states his pain is better than was before the surgery. [facility] Medical History Takes dietary supplements Depression Skin cancer Anxiety HIV (human immunodeficiency virus infection) Osteoarthritis of left hip Surgical History Hip joint replacement status No pertinent past surgical history Family History Mother Cardiovascular disease Father Cardiovascular disease Social History Household Members: Significant Other Household Members Other:: Ambrosio Housing: House Are you a primary child adolescent care to a significant other at home: No Do you presently have visiting nurse or other home services: No Alcohol intake: current Alcohol intake frequency: does not drink Alcohol type: wine Patient Tobacco Use Status: Never used Tobacco e-Cigarette/Vaping Use: Never Used service: No Current occupational status: employed Current occupation: [employer] Current occupational exposures/hazards: No Cognitive needs: No Hearing needs: No Vision needs: Yes (wears glasses) Physical Exam Vital Signs: BMI result Body Mass Index 27.2 Extrem Other: Incision clean dry and intact No pain with passive hip range of motion Trendelenburg gait Negative Trendelenburg sign Results Reviewed Results Reviewed: Left KEVIN in expected post operative position with no hardware complications or evidence of loosening Assessment & Plan Assessment & Plan (1) History of total left hip replacement: Code(s): Z96.642 - Presence of left artificial hip joint Category: Surgical Plan: I reviewed Aman's radiographs with him. He is doing well. His gait mechanics are poor I recommend he focus on modifying that through strengthening and gait training. Follow up 6 weeks. He can discontinue his aspirin. Orders: Orders XR pelvis 1-2V 01/29/24 M25.559 - Pain in unspecified hip Coding Level of Care Code Global (48852) Diagnoses History of total left hip replacement Z96.642
== END 2024-01-29 09:12 | disposition home or self-care (01) ==
PROVIDERS: Visit Provider Orthopaedic Surgery
DX: Z96.642 Presence of left artificial hip joint (principal)
CPT/HCPCS: 99024

== ENCOUNTER 2024-02-06 14:39 | Outpatient (AMB) | payer BC, SELFPAY ==
--- NOTE | 2024-02-06 14:40 | MHC.OFFWIV ---
Intake Vital Signs 02/06/24 14:42 Height 5 ft 9 in BP 138/68 Blood Pressure Location Lt brachial Position Sitting Pulse 92 Pulse Source Pulse Oximeter Pulse Oximetry (%) 98 Oxygen Delivery Method Room Air Intake Visit Reasons: EST/ RIB Pain right side Intake Note: Patient reports hearing a cracking sound while parked, bent over in the car to the right side. Pain is ongoing x1 week and worsening. Allison PT reported to Ortho, spoke with JAMAL Hedrick and she recommended him to go to the ED. Patient has history of noncompliance with recommendations and activities. Allison PT states she has recommended the use of a walker to relieve pressure on the hip and patient did not have a walker with him today. Patient Tobacco Use Status: Never used Tobacco [employer] Consultant Required: No Accompanied by: Self / Same As Patient Allergies No Known Allergies Allergy (Verified 02/06/24 14:41) Do you need a note to return to daycare/school/sports/work: No HPI HPI Comments History of Present Illness Details 59 y/o male with past medical history of nsufficiency fracture of left femur, recent LTHR, HIV, Osteoarthritis, Skin cancer, MDD, [place] presenting for right chest pain About four days ago started to develop right sided chest pain. Increased after leaning against the middle console in the car after trying to grab something. Increased over the past day. Increased with deep breathing, bending, using walker/cane with right hand. Reports similar episode one year ago that improved after a few days. He is worried he fractured the ribs. Left THR 12/23/23. Reports persistent pain left hip. Denies redness, swelling, fevers. There is an xray order in. ROS see HPI PHYSICAL EXAM: GENERAL: Alert and oriented x 3. EYES: EOMI. Anicteric. HENT: No scleral icterus. LUNGS: Clear to auscultation bilaterally. CARDIOVASCULAR: Regular rate and rhythm. EXTREMITIES: No edema. Non-tender. SKIN: No rashes or lesions. Warm. MSK: Right chest NTTP, no bruising NEUROLOGIC: No gross neurological deficits. PSYCHIATRIC: Cooperative. Appropriate mood and affect [facility] Medical History Takes dietary supplements Depression Skin cancer Anxiety HIV (human immunodeficiency virus infection) Osteoarthritis of left hip Surgical History Hip joint replacement status No pertinent past surgical history Family History Mother Cardiovascular disease Father Cardiovascular disease Social History Household Members: Significant Other Household Members Other:: Ambrosio Housing: House Are you a primary day care director to a significant other at home: No Do you presently have visiting nurse or other home services: No Alcohol intake: current Alcohol intake frequency: does not drink Alcohol type: wine Patient Tobacco Use Status: Never used Tobacco e-Cigarette/Vaping Use: Never Used service: No Current occupational status: employed Current occupation: [employer] Current occupational exposures/hazards: No Cognitive needs: No Hearing needs: No Vision needs: Yes (wears glasses) Physical Exam Vital Signs: Last Vital Signs Pulse 92 02/06/24 14:42 BP 138/68 02/06/24 14:42 Pulse Ox 98 02/06/24 14:42 Oxygen Delivery Method Room Air 02/06/24 14:42 Assessment & Plan Assessment & Plan (1) Chest pain: Code(s): R07.9 - Chest pain, unspecified Qualifiers: Chest pain type: other chest pain Qualified Code(s): R07.89 - Other chest pain Plan: Check xr ribs. Advised topical lidocaine. Can take Advil, tylenol as needed for pain. Not to take advil with any other otc med with exception of tylenol. Will try prednisone course. (2) History of total left hip replacement: Code(s): Z96.642 - Presence of left artificial hip joint Plan: will follow up with ortho Medications: Discontinued celecoxib Discontinued Reason: Doctor's Order 200 mg PO BID 30 days 60 caps 0RF Coding Level of Care Code Est Pt Level 4 (28959) Diagnoses Other chest pain R07.89 Chest pain type: other chest pain History of total left hip replacement Z96.642
[2024-02-06 14:42] VITALS: BP 138/68; PULSE 92; O2SAT 98
== END 2024-02-06 15:16 | disposition home or self-care (01) ==
PROVIDERS: PCP Internal Medicine; Visit Provider Family Medicine
DX: R07.89 Other chest pain (principal); Z96.642 Presence of left artificial hip joint
CPT/HCPCS: 99214

== ENCOUNTER 2024-02-06 15:51 | Outpatient (REF) | payer BC, SELFPAY ==
--- NOTE | ~2024-02-06 | XR_ITS ---
EXAMINATION: XR RIBS, RIGHT CLINICAL INFORMATION: Patient referred hearing a crack after leaning against a car on his right side, chest pain. COMPARISON: None available. TECHNIQUE: 3 views of the right ribs were obtained. FINDINGS: Lungs are clear. No consolidation, pneumothorax, or pleural effusion. The cardiomediastinal silhouette and pulmonary vasculature are normal. Osseous structures are unremarkable. Ribs are intact. No fractures are identified. XR/XR ribs RT min 3V w CXR1V IMPRESSION: 1. No acute cardiopulmonary findings. 2. No displaced rib fractures. Electronically signed by: Chloe Ogden MD 02/06/2024 04:24 PM EDT
== END 2024-02-06 15:52 | disposition home or self-care (01) ==
LOC: HO.XRAY 15:51
PROVIDERS: PCP Internal Medicine; Visit Provider Internal Medicine
DX: R07.9 Chest pain, unspecified (principal)
CPT/HCPCS: 71101

== ENCOUNTER 2024-02-13 14:00 | Outpatient (RCR) | payer BC, SELFPAY ==
--- NOTE | 2024-01-20 15:20 | MHC.PT.OD ---
[facility] [place] [facility] [place] [facility] [place] [facility] [address] Lilly Armendariz [address] [phone] F: [phone] F: [phone] F: [phone] F: [phone] Physical Therapy Daily Note Diagnosis: Z96.642 Presence of left artificial hip joint, s/p LT KEVIN 12/23/23, book after 01/08/24 appt posterior precautions [facility] date of referral 12/19/23 [ End ] Date of Surgery: 12/23/23 Date of Evaluation: 01/09/24 Date of Treatment: 01/20/24 Treatments to Date: Cancellations to Date: No Shows to Date: Authorized Visits: 4 Insurance End Date: Precautions/ Contraindications:HIV, Left posterior KEVIN DR Bee DOS 12/23/23 WBAT, RBBB cardiac Subjective: I cant tell you what I did... I mowed my lawn on Friday but I was sore all day Friday and used ice all day. Pain Score and Location: 2 L KEVIN Objective Flowsheet: Tests & Measures see eval Exercises Reinforced recommendations to avoid yard work and prolonged static positions, reviewed use of ice 20 minutes on/20 minutes off to ease sx, encouraged use of std cane (was noted to present without), gentle motion/therex as reviewed in office. Educated re: sequencing for stairs, ability it is okay to ascend/descend however it is most comfortable but may be easier to ascend with R LE first then descend with L LE first. Reviewed recommendation to refrain from walking animal on a leash to avoid risk of fall/pulling at this time but encouraged small short walks with use of std cane with family/support present>icing afterwards. Pt agreeable to trial of therex to ease sx completed isometric QS x 2 sets 10R, AP x 3 sets 10R, posterior pelvic tilt with glute set knees slightly bent x 10R, AAROM heel slide x 10 sec hold x 10R, reinforced/reviewed posterior precautions with pillow between knees, supine hip add/abd slides on mat with QS focus, review of SL hip abduction with pillow between knee x 2 sets 10R, ice to L hip anterior/posterior x 10 minutes seated. Pt noted to exhibit poor carryover for safety insight/recovery expectations despite repeated education given. Educated should not be driving per recommendations made at post op visit on 01/08/24. Pt was educated that overall he is doing very well but continues to disregard recommendations, repeatedly irritating his hip and causing pain. We discussed tapering frequency of therapy to once a week. Reiterated 3/3 KEVIN posterior precautions- pt initially only able to recall 2/3 precautions. Pt noted to be cry and exhibit emotional instability during session, I dont understand why Im not better by now. therapist connected patient with Community Health Worker Ld Byrne to obtain/follow up regarding mental health concerns/therapist?. Pt connected to reestablish care with new PCP as previous PCP was DC due to patient rude demeanor at last visit. Encouraged patient to use std cane to reduce gait deviations (+antalgic gait today with decreased stance phase L LE) Cues to slow pace and improve symmetry of step length with ambulation. Reviewed sequencing for stair climbing, ascending with R LE, descending with stairs to the left. Pt ascended 6 inch step leading with L LE x 2 sets 10R, then completed with R LE x 2 set 10R to compare the difference, then completed descending stairs with L LE 6 inch x 2 set 10R, then R LE 6 inch step x 2 set 10R. Discussed use of rail and support. self care; posterior precautions handout review of bed mobility need for pillow between knees; benefit icing x 10-20 minutes on, 20 minutes off Layering 6 layers between ice and skin plus over clothing Modalities Assessment: [id number]: Pt non-compliant with therapy recommendations. Admits push mowing his lawn on Friday despite recommendations to hold from this until to surgeon at next appt. Effort made to reinforce posterior precautions and rehab expectations. Pt noted to become tearful during session, stating I just want to get back to normal. When can I get back to living? Pt noted to make comments re: current status and expressed feeling of not having successful outcomes. Attempt made to educate patient that he is doing well (has overall good hip abd strength, but spike in pain post activity of mowing. Educated needs to ice and take it easy. Encouraged not yet ready for higher level task such as using push- mowing. Therapist did encourage small short walks with use of std cane with avoidance of walking dog due to concern for animal pulling. Reviewed stair sequencing, pt verbalized is fearful of stairs. Educated ascending/descending to reduce irritation on L hip (ascending R, descending L). Pt encouraged to speak with surgeon re: recommendations moving ahead. Connection made with community health worker post session with Ld Byrne to explore mental health support system. Phone call placed to [place] Nurse Navigator to relay concerns re: non-compliance/overuse/current pain levels. Pt to decrease frequency to 1x/week. Pt to see Dr. Bee on 01/29/24. 01/16/24: Pt present to office stating he did yard work despite being educated to not perform such as tasks at time of last visit stating he is in severe pain and was afraid to come into PT today in fear of making sx worse. Pt inquires about ability/ recommendation to drive back and forth 3+ hours to the [facility] in the car; was educated in avoidance of prolonged sitting at this time. Pt lacks insight to safety precautions, benefitted from cues to maintain posterior precautions during bed mobility this date. Presents to office without use of std cane despite recommendation to use for short term. He was educated to perform icing more frequently and use std cane. No concerns for dislocation present at visit, AROM of L hip within functional tolerance, AAROM L knee flexion to ~110 however pt noted to express presence of anterior and posterior hip pain (elevated at start of session, reduced post session therex/icing). 01/13/24: Pt doing well in regard to recovery overall but has poor insight to expectations/safety/goals/precautions and will benefit from review/reiteration of precautions therapy progression. Pt was encouraged to keep icing his hip daily prn 20 minutes on/off, use std cane with encouragement to slow pace/reduce gait deviations. HEP sheets unable to be printed this date however review of AP, SAQ, SL hip abduction, AAROM heel slides for home. Pt is a 58 y/o RHD male with PMH signficant for HIV, RBBB, [place], MDD, insuffiency fracture of L hip, OA L hip; referred to PT from [facility] orthopedics, Z96.642 Presence of left artificial hip joint, s/p LT KEVIN 12/23/23, book after 01/08/24 appt posterior precautions [facility] date of referral 12/19/23. 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 Pt had one overnight stay 12/23/23-12/24/23 at [facility] post operatively and was began home VNA services which finished last week. Pt reports transitioning to the cane from the walker very soon after coming home from the hospital (presents with std cane today). His incision has 9 steri-strips and is healing well (had post op staple removal yesterday). Pt has not been icing his hip and has expressed significant bowel issues following surgery. Pt was noted to become tearful during his visit and expressed relief in hip pain post education of icing benefit and goals. Pt states he has been sleeping on his side with no pillow between his knees for the past two weeks. He was only able to recall 1/3 posterior precautions. His posterior precautions were reviewed verbally with demonstration and he was issued a written handout to reinforce education. He was told he needs to have a pillow between his knees for sleep. We reviewed use of a sockaide/shoe horn/clerical office, and precautions in regard to L hip. Pt will be seen 2x/week x 4 weeks. PT Plan: Follow up education re: posterior precautions Attempt made to connect with nurse navigator Floridalma to inform re: patient status; LVM Short Term Goals: 1. Demonstrate verbal and physical carryover of posterior precautions of L KEVIN. 2. Strength of scapular stabilizers to 4/5. 3. SLR with good strength. 4. Hip abd to 4/5 on L. [facility] Goals: 1. Community ambulation MOD I with >500ft with std cane. 2. Negotiate stairs reciprocally with good dynamic balance with use of single rail/std cane. 3. Strength hip abd L 5/5. 4. Strength hip ext L 5/5. 5. Pain <2/10 L hip with functional mobility. Electronically signed by: Angelina Wilson, PT, DPT
== END 2024-04-26 09:56 | disposition home or self-care (01) ==
LOC: HO.PTWFD 14:00
PROVIDERS: Visit Provider Physician Assistant
DX: Z96.642 Presence of left artificial hip joint (principal)
CPT/HCPCS: 97110; 97116; 97162; 97535

== ENCOUNTER 2024-02-20 10:49 | Outpatient (AMB) | payer BC, SELFPAY ==
--- NOTE | 2024-02-20 10:55 | MHC.PC.OV ---
Vital Signs 02/20/24 10:58 Height 5 ft 9 in Weight 184 lb BMI 27.2 BP 118/60 Blood Pressure Location Lt brachial Position Sitting Respiration 12 Pulse 98 Pulse Source Pulse Oximeter Pulse Oximetry (%) 78 L Oxygen Delivery Method Room Air Intake Visit Reasons: new patient/ pain Intake Note: Patient is here to establish care. Patient reports he has no concerns. 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 This has lessened in intensity and frequency. Xray was reassuring-no fractures. Increased after leaning against the middle console in the car after trying to grab something. Increased over the past day. Increased with deep breathing, bending, using walker/cane with right hand. Reports similar episode one year ago that improved after a few days. He has been reporting persistent pain left hip since his TLHR at the beginning of December. He is following with [facility]. Integrity of the replacement looked well by xray performed in December for these symptoms. Denies redness, swelling, fevers. BH: MDD & INDIA stable on current medications HIV: Follows with infectious disease. Doing well. Continues gemvoya. ROS see HPI PHYSICAL EXAM: GENERAL: Alert and oriented x 3. EYES: EOMI. Anicteric. HENT: No scleral icterus. LUNGS: Clear to auscultation bilaterally. CARDIOVASCULAR: Regular rate and rhythm. EXTREMITIES: No edema. Non-tender. SKIN: No rashes or lesions. Warm. MSK: Left hip ttp. Decreased internal, external rotation, abduction. No warmth or redness NEUROLOGIC: No gross neurological deficits. PSYCHIATRIC: Cooperative. Appropriate mood and affect [facility] Medical History Takes dietary supplements Depression Skin cancer Anxiety HIV (human immunodeficiency virus infection) Osteoarthritis of left hip Surgical History Hip joint replacement status No pertinent past surgical history Family History Mother Cardiovascular disease Father Cardiovascular disease Social History Household Members: Significant Other Household Members Other:: Ambrosio Housing: House Are you a primary workforce investment act career manager to a significant other at home: No Do you presently have visiting nurse or other home services: No Alcohol intake: current Alcohol intake frequency: does not drink Alcohol type: wine Patient Tobacco Use Status: Never used Tobacco e-Cigarette/Vaping Use: Never Used service: No Current occupational status: employed Current occupation: [employer] Current occupational exposures/hazards: No Cognitive needs: No Hearing needs: No Vision needs: Yes (wears glasses) Questionnaire PHQ-9 Over the last 2 weeks, how often have you been bothered by any of the following problems? 1. Little interest or pleasure in doing things: not at all 2. Feeling down, depressed, or hopeless: not at all 3. Trouble falling or staying asleep, or sleeping too much: not at all 4. Feeling tired or having little energy: not at all 5. Poor appetite or overeating: not at all 6. Feeling bad about yourself - or that you are a failure or have let yourself or your family down: not at all 7. Trouble concentrating on things, such as reading the newspaper or watching television: not at all 8. Moving or speaking so slowly that other people could have noticed. Or the opposite - being so fidgety or restless that you have been moving around a lot more than usual: not at all 9. Thoughts that you would be better off or of hurting yourself in some way: not at all Total score: 0 Depression Screening Interpretation: Negative (neg) Depression Screening Done: Yes 27043 - PHQ-9 Billing: Yes Source: Developed by Drs. Kris Hamilton, Rita Koenig, Armen Waterman and colleagues, with an educational teddy from [employer]. Thrive Questionnaire Date Thrive assessed: 02/20/24 I am a: Patient What is your living situation today?: I have a steady place to live Within the past 12 months, did the food you bought not last and you didn't have the money to get more?: Never true Within the past 12 months, did you worry whether your food would run out before you got money to buy more?: Never true Do you have trouble paying for medicines?: No Do you have trouble getting transportation to medical appointments?: No Do you have trouble paying your heating and electricity bill?: No Do you have trouble taking care of your child, family member or friend?: No Do you have trouble with day-to-day activities such as bathing, preparing meals, shopping, managing finances, etc.?: No Are you currently unemployed and looking for a job?: No Are you interested in more education?: No Please select the resources that you would like help with: None Currently or been in a relationship where the following occur: No concerns reported THRIVE Score: 0 AUDIT C Alcohol Use Questionnaire (AUDIT-C) 1. How often do you have a drink containing alcohol?: Monthly or less 2. How many drinks containing alcohol do you have on a typical day when you are drinking?: 1 or 2 3. How often do you have six or more drinks on one occasion?: Never Total Score: 1 INDIA-7 AMB Questionnaire INDIA-7 Date INDIA - 7 assessed: 02/20/24 Feeling nervous, anxious, or on edge: 0 = Not at all Not being able to stop or control worryin = Not at all Worrying too much about different things: 0 = Not at all Trouble relaxin = Not at all Being so restless that it is hard to sit still: 0 = Not at all Feeling afraid as if something awful might happen: 0 = Not at all Source: Developed by Drs. Kris Hamilton, Rita Koenig, Armen Waterman and colleagues, with an educational teddy from [employer]. INDIA-7 Assessment Billing INDIA-7 Assessment Tool: INDIA-7 Assessment 30911 Physical exam (Primary Care) Vital Signs: Last Vital Signs Pulse 98 02/20/24 10:58 Resp 12 02/20/24 10:58 BP 118/60 02/20/24 10:58 Pulse Ox 78 L 02/20/24 10:58 Oxygen Delivery Method Room Air 02/20/24 10:58 BMI result Body Mass Index 27.2 Tobacco/Smoking Status: Tobacco use Status Tobacco use date assessed 09/15/23 02/20/24 10:58 Patient Tobacco Use Status Never used Tobacco 02/20/24 10:58 e-Cigarette/Vaping Use Never Used 02/20/24 10:58 PHQ-9: PHQ-9 Score PHQ-9: Total score 0 02/25/24 09:21 Depression Screening Interpretation: Negative (neg) Thrive Assessment: Date of Thrive Assessment Date Thrive assessed 02/20/24 02/20/24 10:58 Currently or been in a relationship where the following occur: No concerns reported Assessment and Plan Assessment & Plan (1) Left hip pain: Code(s): M25.552 - Pain in left hip Plan: Could be natural post operative course Will check wbc, esr, crp-if abnormal will CT scan (2) History of total left hip replacement: Code(s): Z96.642 - Presence of left artificial hip joint (3) MDD (major depressive disorder), recurrent episode: Code(s): F33.9 - Major depressive disorder, recurrent, unspecified Qualifiers: Major depression episode severity: mild Qualified Code(s): F33.0 - Major depressive disorder, recurrent, mild Plan: Doing well off medications (4) HIV (human immunodeficiency virus infection): Comment: Stable HIV untransmissible since undetectable (u=u) Code(s): B20 - Human immunodeficiency virus [HIV] disease Qualifiers: HIV symptom status: asymptomatic, with no history of HIV-related illness Qualified Code(s): Z21 - Asymptomatic human immunodeficiency virus [HIV] infection status Orders: Orders Comprehensive Met. Panel 02/20/24 M25.552 - Pain in left hip, Z96.642 - Presence of left artificial hip joint Complete Blood Count Auto Diff 02/20/24 M25.552 - Pain in left hip, Z96.642 - Presence of left artificial hip joint Erythrocyte Sedimentation Rate 02/20/24 M25.552 - Pain in left hip, Z96.642 - Presence of left artificial hip joint Referrals Orthopedics Referral R07.89 - Other chest pain, Z96.642 - Presence of left artificial hip joint Coding Level of Care Code Est Pt Level 5 (51057) Diagnoses Left hip pain M25.552 History of total left hip replacement Z96.642 Mild episode of recurrent major depressive disorder F33.0 Major depression episode severity: mild Asymptomatic HIV infection, with no history of HIV-related illness Z21 HIV symptom status: asymptomatic, with no history of HIV-related illness Additional Codes INDIA-7 Assessment Billing - INDIA-7 Assessment Tool: INDIA-7 Assessment 48336 ([id number]) Time Spent (min) 45
[2024-02-20 10:58] VITALS: BP 118/60; PULSE 98; RESP 12; O2SAT 78; BMI 27.2
== END 2024-02-20 11:33 | disposition home or self-care (01) ==
PROVIDERS: Visit Provider Internal Medicine
DX: M25.552 Pain in left hip (principal); Z96.642 Presence of left artificial hip joint; F33.0 Major depressive disorder, recurrent, mild; Z21 Asymptomatic human immunodeficiency virus [HIV] infection status
CPT/HCPCS: 96127; 99215

== ENCOUNTER 2024-02-20 11:48 | Outpatient (REF) | payer BC, SELFPAY ==
[2024-02-20 14:25] LABS: MANUAL DIFF FLAG NO
[2024-02-20 14:29] LABS: Eosinophils Absolute Auto 0.1 X10*3/uL (0.0-0.4); Eosinophils Percent Auto 1.7 % (0-4); Hematocrit 38.1 % (42.0-52.0); Hemoglobin 12.1 g/dl (14.0-18.0); Imm Gran Abs Auto 0.01 X10*3/uL (0.00-0.03); Imm Gran Pct Auto 0.2 % (0.0-0.4); Lymphocytes Absolute Auto 1.7 X10*3/uL (1.2-4.9); Lymphocytes Percent Auto 40.8 % (20-40); Mean Corpuscular HGB Conc 31.8 g/dl (31.0-36.0); Mean Corpuscular Volume 94.3 fL (80.0-98.0); Mean Platelet Volume 8.5 fL (9.4-12.4); Monocytes Absolute Auto 0.5 X10*3/uL (0.1-1.2); Monocytes Percent Auto 11.5 % (2-11); Neutrophils Absolute Auto 1.9 x10*3/uL (2.0-8.3); Neutrophils Percent Auto 44.8 % (45-73); Platelet Count 415 X10*3/uL (160-400); Red Blood Count 4.04 X10*6/uL (4.60-5.80); Red Cell Distribution Width 12.6 % (11.0-16.0); White Blood Count 4.2 X10*3/uL (4.8-10.8)
[2024-02-20 15:01] LABS: Alanine Aminotransferase 13 U/L (0-40); Albumin Level 4.2 g/dL (3.5-5.0); Alkaline Phosphatase 73 U/L (39-117); Anion Gap 10 (12-20); Aspartate Amino Transferase 16 U/L (5-37); Bilirubin Total 0.2 mg/dL (0.0-1.0); Blood Urea Nitrogen 18 mg/dL (9-16); Carbon Dioxide 28 mmol/L (22-29); Chloride 105 mmol/L (96-108); Estimated Glomerular Filt Rate > 60; Glucose Random 79 mg/dL (60-115); Potassium 4.4 mmol/L (3.3-5.1); Sodium 139 mmol/L (135-145); Total Protein 7.5 g/dL (6.5-8.0)
[2024-02-20 15:08] LABS: Erythrocyte Sedimentation Rate 44 MM/HR (0-15)
== END 2024-02-20 11:49 | disposition home or self-care (01) ==
LOC: HO.WFDLDS 11:48
PROVIDERS: Visit Provider Internal Medicine
DX: M25.552 Pain in left hip (principal); Z96.642 Presence of left artificial hip joint
CPT/HCPCS: 36415; 80053; 85025; 85652

== ENCOUNTER 2024-03-17 07:43 | Outpatient (REF) | payer BC, SELFPAY ==
--- NOTE | ~2024-03-17 | CT_ITS ---
EXAMINATION: CT HIP WITHOUT CONTRAST, LEFT CLINICAL INFORMATION: Pain in the left hip. COMPARISON: X-ray of the pelvis January 2024. TECHNIQUE: Multidetector volumetric imaging was obtained through the left hip without contrast material. Multiplanar reformatted images were submitted in coronal and sagittal planes. This CT examination was performed using dose optimization techniques as appropriate, variously including the following: *Automated exposure control *Adjustment of mA and/or kV according to patient size (this includes techniques or standardized protocols for targeted exams where dose is matched to indication/reason for exam; i.e. extremities or head) *Use of iterative reconstruction technique DLP: 244 mGy-cm FINDINGS: There is a left total hip arthroplasty in place in the usual position with a normal appearance. No periprostatic fracture or suspicious area of lucency. Subchondral cystic change along the anterior superior acetabulum likely pre-existing to the arthroplasty related osteoarthritis of the joint. No effusion. No para-articular fluid collection. Surrounding muscles are normal. ADDITIONAL FINDINGS: Advanced degenerative changes of the symphysis pubis. Ossification within the proximal hamstring tendons adjacent to the ischial tuberosity likely sequela of old partial tear or fractured enthesophyte. Mild arthrosis of the partially visualized left sacroiliac joint. Partially visualized intrapelvic soft tissues unremarkable. CT/CT hip LT wo IV con IMPRESSION: 1. Left total hip arthroplasty in place with a normal appearance. 2. No acute abnormality. 3. Advanced degenerative changes of the symphysis pubis. 4. Mild arthrosis of the partially visualized left sacroiliac joint. 5. Ossification within the proximal hamstring tendons adjacent to the ischial tuberosity likely sequela of old partial tear or fractured enthesophyte. Electronically signed by: Nathan Khalil MD 03/21/2024 08:50 AM EDT
== END 2024-03-17 07:44 | disposition home or self-care (01) ==
LOC: HO.CT 07:43
PROVIDERS: PCP Internal Medicine; Visit Provider Internal Medicine
DX: M25.552 Pain in left hip (principal); Z96.642 Presence of left artificial hip joint
CPT/HCPCS: 73700

== ENCOUNTER 2024-03-18 08:26 | Outpatient (AMB) | payer BC, SELFPAY ==
--- NOTE | 2024-03-18 08:27 | MHC.OFFVIS ---
Vital Signs 03/18/24 08:31 Height 5 ft 9 in Weight 184 lb BMI 27.2 Intake Visit Reasons: PO: L KEVIN w/NE 12/23/23-CT L Hip Review Intake Note: Aman is a 59 year old male who presents today for a CT scan review of his left hip. He is s/p Left KEVIN 12/23/23. Allergies No Known Allergies Allergy (Verified 03/18/24 08:28) HPI HPI PO: L KEVIN w/NE 12/23/23-CT L Hip Review: Details: This is a 59-year-old gentleman who is almost 3 months status post left hip arthroplasty. He has a history of HIV which is well controlled and anxiety. His surgery was uncomplicated. He comes in today worried that something is wrong because he has pain and continues to have pain. I saw him 6 weeks ago and he was in a similar state although he was moving much less well than he is today. He states his primary care doctor ordered a CT scan because his labs were concerning for infection. He denies fever and chills. He states he has pain at night and with stairs and some activities. The pain is not worse than it was 6 weeks ago it is, in fact, better. [facility] Medical History Takes dietary supplements Depression Skin cancer Anxiety HIV (human immunodeficiency virus infection) Osteoarthritis of left hip Surgical History Hip joint replacement status No pertinent past surgical history Family History Mother Cardiovascular disease Father Cardiovascular disease Social History Household Members: Significant Other Household Members Other:: Ambrosio Housing: House Are you a primary furnace caretaker to a significant other at home: No Do you presently have visiting nurse or other home services: No 75 years or older and lives alone: No Alcohol intake: current Alcohol intake frequency: does not drink Alcohol type: wine Patient Tobacco Use Status: Never used Tobacco e-Cigarette/Vaping Use: Never Used service: No Current occupational status: employed Current occupation: [employer] Current occupational exposures/hazards: No Cognitive needs: No Hearing needs: No Vision needs: Yes (wears glasses) Physical Exam Vital Signs: BMI result Body Mass Index 27.2 Extrem Other: On exam he has a Trendelenburg gait. His left gluteus is firing but weak compared to the right. He has mild pain with ESTHER testing. His hip range of motion is improving and mostly painless whether active or passive. The incision is well healed. There is no unusual erythema or warmth. Results Reviewed Results Reviewed: CT: IMPRESSION: 1. Left total hip arthroplasty in place with a normal appearance. 2. No acute abnormality. 3. Advanced degenerative changes of the symphysis pubis. 4. Mild arthrosis of the partially visualized left sacroiliac joint. 5. Ossification within the proximal hamstring tendons adjacent to the ischial tuberosity likely sequela of old partial tear or fractured enthesophyte Assessment & Plan Assessment & Plan (1) History of total left hip replacement: Code(s): Z96.642 - Presence of left artificial hip joint Category: Surgical Plan: Kameron is doing well status post left hip arthroplasty. He does not feel like he is doing well but I see him improving and most of his problems relate to unrealistic expectations and poor gait mechanics. He does not feel like he has been benefitting from physical therapy and based on his continued Trendelenburg gait he has not been progressing as well as I would have hoped. His pain seems to be improving but his anxiety about that pain is not and he feels that he is not doing as well as he should. I reviewed his x-rays with him and his CT scan. His CT scan shows no fluid at all in the joint and based on his exam there is no evidence of infection. A CT scan was ordered and and he would like a second opinion. He is entitled to get any opinion he would like. I encouraged him to do so in fact. My recommendation is that he continue strengthening and we continue to observe him over the next several months. He had extremely poor gait mechanics for years before the surgery and every time I see him he continues to improve. I do not think his anxiety has benefitted from the idea that he has an infection. Having said that he does have HIV, albeit extremely well controlled, and that is a risk for infection. He is aware of this and I am aware of this and we have discussed this before. There however is no evidence of infection and a 1 time elevated ESR 3 months after surgery is not evidence of infection. The CT scan is nl and I discussed this with him. I do not think he is getting good advice from the people around him. He is being told that he should be feeling better than he is and there has been the implication that he has a poorly functioning hip. I think a second opinion is not necessary but I also don't have a problem with that if he would like to do so. He can either travel to [place] for this or he can contact me and I will send him to someone locally. My recommendation however is to continue physical therapy and see me back in 6 weeks. (2) INDIA (generalized anxiety disorder): Comment: not on meds; declines. Code(s): F41.1 - Generalized anxiety disorder Category: Medical Plan: (3) HIV (human immunodeficiency virus infection): Comment: Stable HIV untransmissible since undetectable (u=u) Code(s): B20 - Human immunodeficiency virus [HIV] disease Category: Medical Qualifiers: HIV symptom status: asymptomatic, with no history of HIV-related illness Qualified Code(s): Z21 - Asymptomatic human immunodeficiency virus [HIV] infection status Plan: Orders: Orders PT Evaluation and Treatment Today Z96.642 - Presence of left artificial hip joint Coding Level of Care Code Global (30496) Diagnoses History of total left hip replacement Z96.642 INDIA (generalized anxiety disorder) F41.1 Asymptomatic HIV infection, with no history of HIV-related illness Z21 HIV symptom status: asymptomatic, with no history of HIV-related illness
[2024-03-18 08:31] VITALS: BMI 27.2
== END 2024-03-18 09:39 | disposition home or self-care (01) ==
PROVIDERS: Visit Provider Orthopaedic Surgery
DX: Z96.642 Presence of left artificial hip joint (principal); F41.1 Generalized anxiety disorder; Z21 Asymptomatic human immunodeficiency virus [HIV] infection status
CPT/HCPCS: 99024

== ENCOUNTER → 2024-03-18 08:26 | Outpatient (BNVA) | payer BC, SELFPAY | PROVIDERS: Visit Provider Orthopaedic Surgery ==

== ENCOUNTER 2024-04-15 08:00 | Outpatient (RCR) | payer BC, SELFPAY ==
--- NOTE | 2024-04-05 16:16 | MHC.PT.EP ---
[place] Office [place] Office [place] Office [address] Lilly Armendariz [address] [phone] F: [phone] F: [phone] F: [phone] F: [phone] Physical Therapy Plan of Care Date of Evaluation: 04/05/24 Date of Surgery: 12/23/2023 Diagnosis: L KEVIN 12/23/2023 Assessment: Pt is a 59 y/o male referred to PT for eval and treat s/p L KEVIN performed on 12/23/2023 with MD Gamez instructions for gait mechanics, glute strengthening. His condition is resulted in decreased tolerance for standing and walking for duration, performing LE dressing, as well as comfort performing transfers secondary to decreased L hip strength, decreased core strength, decreased hip AROM, increased hip mm tissue tension, surgical healing process, gait abnormality, and pain. Pt is deemed an appropriate candidate to receive skilled PT services to address their physical impairments in order to improve their functional ability. Frequency and Duration: The patient will be seen 2 x / wk x 5 wks. Short Term Goals: Initiate home program with evidence of consistency. Improve baseline pain from 1-6/10 to < 0-4/10. Correction Goals: I with home program. Improve LEFI outcome measure by at least 9 points. Pt will be able to ascend and descend 1 fl of stairs with managed Sx; initial: unable or with extreme difficulty. Improve L hip abd MMT by at least 1/2 MMT grade; initial 4/5. Improve L knee extension MMT by at least 1/2 MM; initial 4/5. Treatment Plan: Modalities to reduce pain, spasms and effusion. Manual therapy to restore motion and function. Therapeutic exercise to improve strength and flexibility. Neuromuscular re-education for posture and balance. Therapeutic activities to return to functional activities of daily living. Electronically signed by: Haroldo Arreola PT. Please sign and return to therapist. Thank you for your referral.
--- NOTE | 2024-10-01 07:32 | MHC.PT.DC ---
[facility] [place] Office [place] Office [place] Office [address] Lilly Armendariz 140 [facility] [phone] F: [phone] F: [phone] F: [phone] F: [phone] Physical Therapy Discharge Report Diagnosis: L KEVIN 12/23/2023 Date of Surgery: 12/23/2023 Date of Evaluation: 04/05/24 Date of Discharge: 10/01/24 Treatments to Date: 5 Cancellations to Date: No Shows to Date: Discharge Status: Insurance Declined Tx Discharge Summary: Pt self DC reporting insurance issues. Electronically signed by: Haroldo Arreola PT. Please sign and return to therapist. Thank you for your referral.
== END 2024-10-01 07:32 | disposition home or self-care (01) ==
LOC: HO.PT 08:00
PROVIDERS: PCP Internal Medicine; Visit Provider Orthopaedic Surgery
DX: Z96.642 Presence of left artificial hip joint (principal)
CPT/HCPCS: 97110; 97140; 97161; 97530

== ENCOUNTER 2024-11-15 11:10 | Outpatient (AMB) | payer BC, SELFPAY ==
--- NOTE | 2024-11-15 11:13 | A.OFFVIS_ITS ---
Vital Signs 11/15/24 11:26 Height 5 ft 9 in Weight 174 lb BMI 25.7 Pulse 94 Pulse Source Pulse Oximeter Pulse Oximetry (%) 99 Oxygen Delivery Method Room Air Intake Visit Reasons: HIV Patient Return Allergies No Known Allergies Allergy (Verified 11/15/24 11:27) HPI HPI HIV Patient Return: Details: He presents for visit for HIV care. He has not had insurance since lost job due to left hip problem and saw Dr Bee,hip surgery. He still has trouble moving leg. He has not taken Genvoya due to insurance issues for five months and is concerned about his CD4 count and viral load. He is going to [facility] now per Dr Allison Govea,PCP [facility] Medical History Takes dietary supplements Depression Skin cancer Anxiety HIV (human immunodeficiency virus infection) Osteoarthritis of left hip Surgical History Hip joint replacement status No pertinent past surgical history Family History Mother Cardiovascular disease Father Cardiovascular disease Social History Household Members: Significant Other Household Members Other:: Ambrosio Housing: House Are you a primary day care home mother to a significant other at home: No Do you presently have visiting nurse or other home services: No 75 years or older and lives alone: No Alcohol intake: current Alcohol intake frequency: does not drink Alcohol type: wine Patient Tobacco Use Status: Never used Tobacco e-Cigarette/Vaping Use: Never Used service: No Current occupational status: employed Current occupation: [employer] Current occupational exposures/hazards: No Cognitive needs: No Hearing needs: No Vision needs: Yes (wears glasses) Review of Systems Const All systems reviewed & are unremarkable except as noted in HPI and below Physical Exam Vital Signs: Last Vital Signs Pulse 94 11/15/24 11:26 Pulse Ox 99 11/15/24 11:26 Oxygen Delivery Method Room Air 11/15/24 11:26 BMI result Body Mass Index 25.7 Const General: cooperative Orientation/consciousness: patient oriented x3 HEENT Head: Yes normal to inspection Mouth: Normal oral and palatal mucosa present Eyes General: appearance normal, both eyes and all related structures Pupils: Equal, round and reactive pupils present Resp Effort & Inspection: normal respiratory effort Cardio Rate: regular rate Rhythm: regular rhythm GI Palpation (GI): Soft to palpation and nontender General: Yes no CVA tenderness Back/Spine/Pelvis Back: no CVA tenderness Skin General skin exam: no rashes or lesions noted Neuro General: patient oriented x3 Cranial nerves: Yes CN's II-XII intact bilaterally and Yes Equal, round and reactive pupils present Extrem Other: discomfort left hip,cannot bend easily Psych Appearance: grossly normal Assessment & Plan Assessment & Plan (1) HIV (human immunodeficiency virus infection): Comment: He is off medications but now has insurance. He has been taking Ivermectin through [facility]. Code(s): B20 - Human immunodeficiency virus [HIV] disease Category: Medical Qualifiers: HIV symptom status: asymptomatic, with no history of HIV-related illness Qualified Code(s): Z21 - Asymptomatic human immunodeficiency virus [HIV] infection status Plan: Check labs Restart Genvoya. See in couple months,discuss anal Pap then. Orders: Orders Complete Blood Count Auto Diff Today Z21 - Asymptomatic human immunodeficiency virus [HIV] infection status Basic Metabolic Panel Today Z21 - Asymptomatic human immunodeficiency virus [HIV] infection status HIV-1 RNA QN PCR Expanded Today Z21 - Asymptomatic human immunodeficiency virus [HIV] infection status Hepatitis B Surface Antigen Today Z21 - Asymptomatic human immunodeficiency virus [HIV] infection status Liver Panel Today Z21 - Asymptomatic human immunodeficiency virus [HIV] infection status Hepatitis C Antibody Reflex Today Z21 - Asymptomatic human immunodeficiency virus [HIV] infection status Syphilis Screen Today Z21 - Asymptomatic human immunodeficiency virus [HIV] infection status Lymphocyte Subset Panel 3 Today Z21 - Asymptomatic human immunodeficiency virus [HIV] infection status T Spot TB Today Z21 - Asymptomatic human immunodeficiency virus [HIV] infection status Hepatitis B Surface Ab Qnt Today Z21 - Asymptomatic human immunodeficiency virus [HIV] infection status Hepatitis A IgG Today Z21 - Asymptomatic human immunodeficiency virus [HIV] infection status Medications: New giwksfs-ltq-rhvys-tenof alafen [phone] mg (Genvoya) must administer with a meal/food 1 tab PO DAILY 30 tabs 2RF 30 days Coding Level of Care Code Est Pt Level 4 (75448) Diagnoses Asymptomatic HIV infection, with no history of HIV-related illness Z21 HIV symptom status: asymptomatic, with no history of HIV-related illness
[2024-11-15 11:26] VITALS: PULSE 94; O2SAT 99; BMI 25.7
--- OUTSIDE RECORDS SUMMARY | 2024-11-15 12:27 | XMS_ITS ---
Author Name [facility] Organization Unknown Encounters Encounter Type Encounter Reason Primary Diagnosis Location Date Ambulatory [facility] 11/11/2023 Care Team Organization Name Specialty Phone Email Start Date End Da te [facility] Coal Sample Tester 11/14/2023 09/01/2024 [facility] Primary Care 10/13/2023
== END 2024-11-15 12:55 | disposition home or self-care (01) ==
LOC: HO.HID 11:10
PROVIDERS: PCP Internal Medicine; Visit Provider Internal Medicine
DX: Z21 Asymptomatic human immunodeficiency virus [HIV] infection status (principal)
CPT/HCPCS: 99214

== ENCOUNTER 2024-11-15 11:10 | Outpatient (REF) | payer BC, SELFPAY ==
[2024-11-15 12:57] LABS: MANUAL DIFF FLAG NO
[2024-11-15 13:21] LABS: Basophils Percent Auto 1.2 % (0-2); Eosinophils Absolute Auto 0.1 X10*3/uL (0.0-0.4); Hematocrit 38.8 % (42.0-52.0); Hemoglobin 12.6 g/dl (14.0-18.0); Imm Gran Abs Auto 0.01 X10*3/uL (0.00-0.03); Imm Gran Pct Auto 0.3 % (0.0-0.4); Lymphocytes Absolute Auto 1.2 X10*3/uL (1.2-4.9); Lymphocytes Percent Auto 35.5 % (20-40); Mean Corpuscular HGB Conc 32.5 g/dl (31.0-36.0); Mean Corpuscular Hemoglobin 28.8 pg (27.0-33.0); Mean Corpuscular Volume 88.6 fL (80.0-98.0); Mean Platelet Volume 8.6 fL (9.4-12.4); Monocytes Absolute Auto 0.5 X10*3/uL (0.1-1.2); Monocytes Percent Auto 13.4 % (2-11); Neutrophils Absolute Auto 1.6 x10*3/uL (2.0-8.3); Neutrophils Percent Auto 47.6 % (45-73); Platelet Count 236 X10*3/uL (160-400); Red Blood Count 4.38 X10*6/uL (4.60-5.80); Red Cell Distribution Width 13.4 % (11.0-16.0); White Blood Count 3.4 X10*3/uL (4.8-10.8)
[2024-11-15 13:51] LABS: Alanine Aminotransferase 23 U/L (0-40); Albumin Level 4.4 g/dL (3.5-5.0); Alkaline Phosphatase 84 U/L (39-117); Anion Gap 11 (12-20); Aspartate Amino Transferase 26 U/L (5-37); Bilirubin Direct 0.1 mg/dL (0.0-0.5); Bilirubin Total 0.4 mg/dL (0.0-1.0); Blood Urea Nitrogen 16 mg/dL (9-16); Calcium 9.8 mg/dL (8.4-10.2); Carbon Dioxide 25 mmol/L (22-29); Chloride 107 mmol/L (96-108); Estimated Glomerular Filt Rate > 60; Glucose Random 83 mg/dL (60-115); Potassium 4.2 mmol/L (3.3-5.1); Sodium 139 mmol/L (135-145)
[2024-11-16 02:49] LABS: Hepatitis B Surface Ab Qnt 7 mIU/mL (> OR = 10)
[2024-11-16 08:11] LABS: HBsAGNum1 0.28 S/CO (0.00-0.99); Hepatitis B Surface Antigen Negative (Negative); Syphilis Screen Reactive (Nonreactive); ~HepC Num1 0.18 S/CO (0.00-0.79); ~Hepatitis C Antibody Nonreactive (Nonreactive)
[2024-11-16 21:25] LABS: HIV RNA PCR Qn Copies 283000 copies/mL (NOT DETECTED); HIV RNA PCR Qn Log Copies 5.45 (NOT DETECTED)
[2024-11-17 22:23] LABS: TS Negative Control Passed; TS Panel A 0; TS Panel B 0; TS Positive Control Passed; TSpotTB Negative (Negative)
[2024-11-18 16:59] LABS: Absolute CD3 Count 950 cells/uL (840-3060); Absolute CD4 Count 324 cells/uL (490-1740); Absolute CD8 Count 642 cells/uL (180-1170); Absolute Lymphocytes 1234 cells/uL (850-3900); Percent CD3 Cells 77 % (57-85); Percent CD4 Cells 26 % (30-61); Percent CD8 Cells 52 % (12-42)
[2024-11-19 05:32] LABS: Hepatitis A Antibody IgG REACTIVE (Nonreactive); ~Hepatitis A Antibody IgG 5.48 S/CO (0.00-0.99)
[2024-11-20 11:48] LABS: RPR Quantitative Reactive 1:2 (Nonreactive); T.Pallidum Particle Agg Test Reactive (Nonreactive)
== END 2024-11-15 11:11 | disposition home or self-care (01) ==
LOC: HO.LAB 11:10
PROVIDERS: PCP Internal Medicine; Visit Provider Internal Medicine
DX: Z21 Asymptomatic human immunodeficiency virus [HIV] infection status (principal)
CPT/HCPCS: 36415; 80048; 80076; 85025; 86317; 86359; 86360; 86481; 86592; 86708; 86780; 86803; 87340; 87536

== ENCOUNTER 2025-01-12 11:49 | Outpatient (AMB) | payer OTHER, BC, SELFPAY ==
--- OUTSIDE RECORDS SUMMARY | 2024-12-04 17:30 | XMS_ITS ---
Author Organization [facility] Address [address] [facility] [address] [place] [address] Care Team Providers Care Director Correctional Agency Name Role Phone Migration, Provider Unavailable Unavailable REASON FOR VISIT Multum To Medispan Conversion Encounter Medications Medication SIG (Take, Route, Frequency, Duration) Notes Start Date End Date Status Lexiva 700 MG 2 TAB(S) ORALLY BID; Duration: 30 DAY(S) *Please review and pick correct strength-formulation from Medispan options. If intended option is not shown, discontinue and re-order from Quick Search* Active Xanax 0.5 MG 1 tab(s) orally TID; Duration: 30 day(s) Active Diprolene 0.05 % as directed applied topically BID; Duration: 0 Active Salagen 5 MG 1 tab(s) orally BID; Duration: 0 Active Truvada 300MG/200MG ONE PO DAILY; Duration: 30 DAYS *Please review and pick correct strength-formulation from Medispan options. If intended option is not shown, discontinue and re-order from Quick Search* Active Encounters Encounter Location Date Provider Diagnosis [facility] [address] [facility] [address] [place] [address] 12/04/2024 Provider Migration ANXIETY DISORDER OTH DIS 293.84 Assessments Encounter Date Diagnosis (ICD Code) Assessment Notes Treatment Notes Treatment Clinical Notes Section Notes 12/04/2024 ANXIETY DISORDER OTH DIS (ICD9-CM - 293.84) Plan Of Treatment Medication Medication Name Sig Start Date Stop Date Notes Xanax 0.5 MG 1 tab(s) orally TID; Duration: 30 day(s) Progress Notes * EDSON PIÑADOB:1965 (59 yo M)Acc No.[id number]:12/04/2024 Patient: Adrien EDSON DONNELLY Provider: :1965 A ge:59 Y S ex:Male Date:12/04/2024 Address: [address] [place], [id number] Subjective: * Chief Complaints: * 1 . Multum To Medispan Conversion Encounter. * Medical History: * Medications: T aking Lexiva 700 MG TABLET 2 TAB(S) ORALLY BID , Notes to Pharmacist: *Please review and pick correct strength-formulation from Medispan options. If intended option is not shown, discontinue and re-order from Quick Search*, Taking Truvada 300MG/200MG ONE PO DAILY , Notes to Pharmacist: *Please review and pick correct strength-formulation from Medispan options. If intended option is not shown, discontinue and re-order from Quick Search*, Taking Salagen 5 MG Tablet 1 tab(s) orally BID , Taking Diprolene 0.05 % Ointment as directed applied topically BID Objective: * Vitals: Assessment: * Assessment: 1. A NXIETY DISORDER OT DIS - 293.84 Plan: * Treatment: * Images: * Electronic signature of Prov ider Migration on 01/12/2025 at 12:46 PM EDT Sign off status: Pending * Provider: Date: 12/04/2024 Generated for Taj perez/Harmeet/Maggieitting on: 01/12/2025 12:46 PM EDT
--- OUTSIDE RECORDS SUMMARY | 2025-01-12 12:46 | XMS_ITS | Clinical Summary ---
Author Organization [facility] Address [address] [place] [address] Care Team Providers Care Aircraft Manager Name Role Phone Sonido Fuentes MD Primary Care Provider [phone] Social History Tobacco Use Types Packs/Day Years Used Date Smoking Tobacco: Never Assessed Sex and Gender Information Value Date Recorded Sex Assigned at Not on file Gender Identity Not on file Sexual Orientation Not on file Plan of Treatment Health Maintenance Due Date Last Done Comments Hepatitis C Screening 1965 COVID-19 Vaccine (#1) 1965 Depression Screening 1976 Preventative Health Evaluation 01/26/1982 Colon Cancer Screening (Colonoscopy) 01/26/2009 Shingrix-Zoster Vaccine (1 o f 2) 01/26/2014 DTap / Tdap / Td (2 - Td or Tdap) 03/20/2020 03/20/2010 Influenza Vaccine (#1) 2025 05/16/2016 RSV Adult > 60+ Yrs or (1 - 1-dose 75+ series) 01/26/2039 Pneumococcal Vaccine Aged Out 09/03/2013, 09/03/2013, 03/20/2010 No longer eligible based on patient's age to complete this topic Hepatitis B Vaccines Aged Out No long er eligible based on patient's age to complete this topic RSV Ped < 20 months Aged Out No longe r eligible based on patient's age to complete this topic Care Teams Aircraft Manager Relationship Specialty Start Date End Date Sonido Fuentes MD [address] [place] [phone] PCP - General Internal Medicine 07/19/21
--- OUTSIDE RECORDS SUMMARY | 2025-01-12 12:46 | XMS_ITS | Clinical Summary ---
Author Organization [facility] Address [address] [place] [address] Care Team Providers Care Bioinformatics Assistant Name Role Phone System, Provider Not In Primary Care Provider Un available Social History Tobacco Use Types Packs/Day Years Used Date Smoking Tobacco: Never Assessed Sex and Gender Information Value Date Recorded Sex Assigned at Male 10/13/2023 9:48 AM EDT Legal Sex Male 4:43 PM EDT Gender Identity Male 10/13/2023 9:48 AM EDT Sexual Orientation Choose not to disclose 2023 9:48 AM EDT Plan of Treatment Health Maintenance Due Date Last Done Comments Hepatitis C Virus Screening 1965 HIV Screening 01/26/1977 DTaP/Tdap/Td Vaccines (1 - Tdap) 01/26/1983 Colonoscopy 01/26/2009 Pneumococcal Vaccines 50+ (1 of 1 - PCV) 01/26/2014 Zoster (Shingles) Vaccine (1 of 2) 01/26/2014 COVID-19 Vaccine ( - 2023-2 5 season) 2024 Influenza Vaccine 01/14/2025 RSV Vaccine 60 years and old er and Patients (1 - 1-dose 75+ series) 01/26/2039 Hepatitis B Vaccines Aged Out No long er eligible based on patient's age to complete this topic Insurance BLUE [employer]OSS [place] PPO Care Teams Bioinformatics Assistant Relationship Specialty Start Date End Date System, Provider Not In PCP - General 10/13/23
[2025-01-12 13:00] VITALS: BP 112/64; PULSE 89; TEMP 36.4; O2SAT 99; BMI 24.5
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
== END 2025-01-12 14:32 | disposition home or self-care (01) ==
PROVIDERS: PCP Internal Medicine; Visit Provider Physician Assistant
DX: S16.1XXA Strain of muscle, fascia and tendon at neck level, initial encounter (principal); M54.50 Low back pain, unspecified; M54.6 Pain in thoracic spine

== ENCOUNTER 2025-01-14 16:24 | Outpatient (REF) | payer BC, SELFPAY ==
[2025-01-15 03:19] LABS: Syphilis Screen Reactive (Nonreactive)
[2025-01-17 16:24] LABS: HIV RNA PCR Qn Copies 104 copies/mL (NOT DETECTED); HIV RNA PCR Qn Log Copies 2.02 (NOT DETECTED)
[2025-01-19 16:19] LABS: Absolute CD3 Count 1129 cells/uL (840-3060); Absolute CD8 Count 653 cells/uL (180-1170); Percent CD3 Cells 74 % (57-85); Percent CD8 Cells 43 % (12-42)
[2025-01-24 15:20] LABS: T.Pallidum Particle Agg Test Reactive (Nonreactive)
== END 2025-01-14 16:25 | disposition home or self-care (01) ==
LOC: HO.LAB 16:24
PROVIDERS: PCP Internal Medicine; Visit Provider Internal Medicine
DX: Z11.3 Encounter for screening for infections with a predominantly sexual mode of transmission (principal); Z21 Asymptomatic human immunodeficiency virus [HIV] infection status
CPT/HCPCS: 36415; 86359; 86360; 86592; 86780; 87536

== ENCOUNTER 2025-01-24 14:07 | Outpatient (AMB) | payer BC, SELFPAY ==
--- OUTSIDE RECORDS SUMMARY | 2024-12-04 17:30 | XMS_ITS ---
Author Organization [facility] Address [address] [facility] [address] [place] [address] Care Team Providers Care Accountant Cost Name Role Phone Migration, Provider Unavailable Unavailable [...] Active Encounters Encounter Location Date Provider Diagnosis [facility] [address] [facility] [address] [place] [address] 12/04/2024 Provider Migration ANXIETY DISORDER OTH DIS 293.84 Assessments Encounter Date Diagnosis (ICD Code) Assessment Notes Treatment Notes Treatment Clinical Notes Section Notes 12/04/2024 ANXIETY DISORDER OTH DIS (ICD9-CM - 293.84) Plan Of Treatment Medication Medication Name Sig Start Date Stop Date Notes Xanax 0.5 MG 1 tab(s) orally TID; Duration: 30 day(s) Progress Notes * EDSON PIÑADOB:1965 (59 yo M)Acc No.[id number]:12/04/2024 Patient: Adrien EDSON DONNELLY Provider: :1965 A ge:59 Y S ex:Male Date:12/04/2024 Address: [address] [place], [place] Subjective: * Chief Complaints: * 1 . [...] Electronic signature of Prov ider Migration on 01/24/2025 at 02:35 PM EDT Sign off status: Pending * Provider: Date: 12/04/2024 Generated for Taj perez/Harmeet/Luis E on: 01/24/2025 02:35 PM EDT
[2025-01-24 14:11] VITALS: PULSE 91; O2SAT 98; BMI 24.8
--- NOTE | 2025-01-24 14:11 | MHC.OFFVIS ---
Vital Signs 01/24/25 14:11 Height 5 ft 9 in Weight 168 lb BMI 24.8 Pulse 91 Pulse Source Pulse Oximeter Pulse Oximetry (%) 98 Oxygen Delivery Method Room Air Intake Visit Reasons: hiv labs Allergies No Known Allergies Allergy (Verified 01/24/25 14:11) HPI HPI hiv labs: Details: He is doing well He has viral load of 104 and CD4 count 480 on 01/14. He takes Genvoya daily and prior viral load 283,000 on 11/15. [facility] Medical History Takes dietary supplements Depression Skin cancer Anxiety HIV (human immunodeficiency virus infection) Osteoarthritis of left hip Surgical History Hip joint replacement status No pertinent past surgical history Family History Mother Cardiovascular disease Father Cardiovascular disease Social History Household Members: Significant Other Household Members Other:: Ambrosio Housing: House Are you a primary care provider to a significant other at home: No Do you presently have visiting nurse or other home services: No 75 years or older and lives alone: No Alcohol intake: current Alcohol intake frequency: does not drink Alcohol type: wine Patient Tobacco Use Status: Never used Tobacco e-Cigarette/Vaping Use: Never Used service: No Current occupational status: employed Current occupation: [employer] Current occupational exposures/hazards: No Cognitive needs: No Hearing needs: No Vision needs: Yes (wears glasses) Review of Systems Const All systems reviewed & are unremarkable except as noted in HPI and below Physical Exam Vital Signs: Last Vital Signs Pulse 91 01/24/25 14:11 Pulse Ox 98 01/24/25 14:11 Oxygen Delivery Method Room Air 01/24/25 14:11 BMI result Body Mass Index 24.8 Const General: cooperative HEENT Head: Yes normal to inspection Face and sinus: Yes normal facial exam Mouth: Normal oral and palatal mucosa present Teeth and gingiva: dentition normal Eyes General: appearance normal, both eyes and all related structures Pupils: Equal, round and reactive pupils present Resp Effort & Inspection: normal respiratory effort Cardio Rate: regular rate Rhythm: regular rhythm GI Palpation (GI): Soft to palpation and nontender General: Yes no CVA tenderness Back/Spine/Pelvis Back: no CVA tenderness Skin General skin exam: no rashes or lesions noted Neuro General: moves all extremities Cranial nerves: Yes Equal, round and reactive pupils present Extrem General: Yes normal to inspection Psych Appearance: grossly normal Assessment & Plan Assessment & Plan (1) HIV (human immunodeficiency virus infection): Comment: He is taking Genvoya daily and viral load has come down well. Continue Genvoya and check viral load again in couple months. See as scheduled. Code(s): B20 - Human immunodeficiency virus [HIV] disease Category: Medical Qualifiers: HIV symptom status: asymptomatic, with no history of HIV-related illness Qualified Code(s): Z21 - Asymptomatic human immunodeficiency virus [HIV] infection status Plan: na Orders: Orders HIV-1 RNA QN PCR Expanded 3 Months Z21 - Asymptomatic human immunodeficiency virus [HIV] infection status Lymphocyte Subset Panel 3 3 Months Z21 - Asymptomatic human immunodeficiency virus [HIV] infection status Medications: Refilled lrkjagt-arq-nkstq-tenof alafen [phone] mg (Genvoya) must administer with a meal/food 1 tab PO DAILY 30 tabs 5RF 30 days Coding Level of Care Code Est Pt Level 4 (77442) Diagnoses Asymptomatic HIV infection, with no history of HIV-related illness Z21 HIV symptom status: asymptomatic, with no history of HIV-related illness
--- OUTSIDE RECORDS SUMMARY | 2025-01-24 14:35 | XMS_ITS | Clinical Summary ---
Author Organization [facility] Address [address] [place] [address] Care Team Providers Care Child And Adolescent Therapist Name Role Phone System, Provider Not In [...] Insurance [employer] PPO Care Teams Child And Adolescent Therapist Relationship Specialty Start Date End Date System, Provider Not In PCP - General 10/13/23
--- OUTSIDE RECORDS SUMMARY | 2025-01-24 14:35 | XMS_ITS | Clinical Summary ---
Author Organization [facility] Address [address] [place] [address] Care Team Providers Care Survey Coordinator Name Role Phone Sonido Fuentes MD Primary Care Provider [phone] Social History Tobacco Use Types Packs/Day Years [...] age to complete this topic Care Teams Survey Coordinator Relationship Specialty Start Date End Date Sonido Fuentes MD [address] [place] [phone] PCP - General Internal Medicine 07/19/21
== END 2025-01-24 14:54 | disposition home or self-care (01) ==
LOC: HO.HID 14:07
PROVIDERS: PCP Internal Medicine; Visit Provider Internal Medicine
DX: Z21 Asymptomatic human immunodeficiency virus [HIV] infection status (principal)
CPT/HCPCS: 99214

== ENCOUNTER 2025-05-02 14:18 | Outpatient (REF) | payer BC, SELFPAY ==
--- OUTSIDE RECORDS SUMMARY | 2025-05-03 04:11 | XMS_ITS | Clinical Summary ---
Author Organization [facility] Address [address] [place] [address] Care Team Providers Care Masking Machine Operator Name Role Phone System, Provider Not In [...] Zoster (Shingles) Vaccine (1 of 2) 01/26/2014 Influenza Vaccine 01/14/2025 COVID-19 Vaccine (1 - 2023-2 5 season) 2025 RSV Vaccine 50 years and old er and Patients (1 - 1-dose 75+ series) 01/26/2039 Hepatitis B Vaccines Aged Out No long er eligible based on patient's age to complete this topic Insurance [employer] PPO Care Teams Masking Machine Operator Relationship Specialty Start Date End Date System, Provider Not In PCP - General 10/13/23
[2025-05-05 04:33] LABS: HIV RNA PCR Qn Copies 41 copies/mL (NOT DETECTED); HIV RNA PCR Qn Log Copies 1.61 (NOT DETECTED)
[2025-05-07 17:18] LABS: Absolute CD3 Count 1140 cells/uL (840-3060); Absolute CD8 Count 574 cells/uL (180-1170); Percent CD3 Cells 72 % (57-85); Percent CD8 Cells 36 % (12-42)
== END 2025-05-02 14:19 | disposition home or self-care (01) ==
LOC: HO.LAB 14:18
PROVIDERS: PCP Internal Medicine; Visit Provider Internal Medicine
DX: Z21 Asymptomatic human immunodeficiency virus [HIV] infection status (principal)
CPT/HCPCS: 36415; 86359; 86360; 87536

== ENCOUNTER 2025-05-11 13:49 | Outpatient (AMB) | payer BC, SELFPAY ==
--- NOTE | 2025-05-11 13:50 | MHC.OFFVIS ---
Vital Signs 05/11/25 13:54 Height 5 ft 9 in Weight 166 lb BMI 24.5 Pulse 96 Pulse Source Pulse Oximeter Pulse Oximetry (%) 99 Oxygen Delivery Method Room Air Intake Visit Reasons: HIV labs follow up/med Allergies No Known Allergies Allergy (Verified 05/11/25 13:55) HPI HPI HIV labs follow up/med: Details: He is viral load 41 and CD4 count 545 on 05/02/2025. He is taking Genvoya regularly. He is UTD on shots and receiving primary care. [facility] Medical History Takes dietary supplements Depression Skin cancer Anxiety HIV (human immunodeficiency virus infection) Osteoarthritis of left hip Surgical History Hip joint replacement status No pertinent past surgical history Family History Mother Cardiovascular disease Father Cardiovascular disease Social History Household Members: Significant Other Household Members Other:: Ambrosio Housing: House Are you a primary youth care worker to a significant other at home: No Do you presently have visiting nurse or other home services: No 75 years or older and lives alone: No Alcohol intake: current Alcohol intake frequency: does not drink Alcohol type: wine Patient Tobacco Use Status: Never used Tobacco e-Cigarette/Vaping Use: Never Used service: No Current occupational status: employed Current occupation: [employer] Current occupational exposures/hazards: No Cognitive needs: No Hearing needs: No Vision needs: Yes (wears glasses) Review of Systems Const All systems reviewed & are unremarkable except as noted in HPI and below Physical Exam Vital Signs: Last Vital Signs Pulse 96 05/11/25 13:54 Pulse Ox 99 05/11/25 13:54 Oxygen Delivery Method Room Air 05/11/25 13:54 BMI result Body Mass Index 24.5 Const General: cooperative Orientation/consciousness: patient oriented x3 HEENT Head: Yes normal to inspection Mouth: Normal oral and palatal mucosa present Eyes General: appearance normal, both eyes and all related structures Pupils: Equal, round and reactive pupils present Resp Effort & Inspection: normal respiratory effort Cardio Rate: regular rate Rhythm: regular rhythm GI Palpation (GI): Soft to palpation and nontender General: Yes no CVA tenderness Back/Spine/Pelvis Back: no CVA tenderness Skin General skin exam: no rashes or lesions noted Neuro General: patient oriented x3 Cranial nerves: Yes CN's II-XII intact bilaterally and Yes Equal, round and reactive pupils present Extrem General: Yes normal to inspection Psych Appearance: grossly normal Assessment & Plan Assessment & Plan (1) HIV (human immunodeficiency virus infection): Comment: He is taking Genvoya daily and viral load has come down well. Continue Genvoya and check viral load again in six months. See as scheduled. Follow PCP also. Code(s): B20 - Human immunodeficiency virus [HIV] disease Category: Medical Qualifiers: HIV symptom status: asymptomatic, with no history of HIV-related illness Qualified Code(s): Z21 - Asymptomatic human immunodeficiency virus [HIV] infection status Plan: as above Orders: Orders HIV-1 RNA QN PCR Expanded 6 Months Z21 - Asymptomatic human immunodeficiency virus [HIV] infection status Lymphocyte Subset Panel 3 6 Months Z21 - Asymptomatic human immunodeficiency virus [HIV] infection status Medications: Changed From onkxrjr-pgo-htdeb-tenof alafen [phone] mg (Genvoya) must administer with a meal/food 1 tab PO DAILY 30 days 30 tabs 5RF To lijablo-jdv-ojmsw-tenof alafen [phone] mg (Genvoya) must administer with a meal/food 1 tab PO DAILY 90 tabs 3RF 90 days Coding Level of Care Code Est Pt Level 4 (35791) Diagnoses Asymptomatic HIV infection, with no history of HIV-related illness Z21 HIV symptom status: asymptomatic, with no history of HIV-related illness
[2025-05-11 13:54] VITALS: PULSE 96; O2SAT 99; BMI 24.5
--- OUTSIDE RECORDS SUMMARY | 2025-05-11 16:54 | XMS_ITS | Clinical Summary ---
Author Organization [facility] Address [address] [place] [address] Care Team Providers Care Rn Corrections Name Role Phone Sonido Fuentes MD Primary Care Provider Social History Tobacco Use Types Packs/Day Years [...] age to complete this topic Care Teams Rn Corrections Relationship Specialty Start Date End Date Sonido Fuentes MD [address] [place] [phone] PCP - General Internal Medicine 07/19/21
--- OUTSIDE RECORDS SUMMARY | 2025-05-11 16:54 | XMS_ITS ---
Author Name [facility] Organization Unknown Encounters Encounter Type Encounter Reason Primary Diagnosis Location Date Ambulatory [facility] 11/11/2023 Care Team Organization Name Specialty Phone Email Start Date End Da te [facility] Leasing Property Manager 11/14/2023 09/01/2024 [facility] PROVIDER SYSTEM Primary Care 10/13/2023
--- OUTSIDE RECORDS SUMMARY | 2025-05-11 16:54 | XMS_ITS | Clinical Summary ---
Author Organization [facility] Address [address] [place] [address] Care Team Providers Care Transport Company Manager Name Role Phone System, Provider Not In [...] Insurance [employer] PPO Care Teams Transport Company Manager Relationship Specialty Start Date End Date System, Provider Not In PCP - General 10/13/23
== END 2025-05-11 14:23 | disposition home or self-care (01) ==
LOC: HO.HID 13:50
PROVIDERS: PCP Internal Medicine; Visit Provider Internal Medicine
DX: Z21 Asymptomatic human immunodeficiency virus [HIV] infection status (principal)
CPT/HCPCS: 99214